=== PATIENT | female | born 1960 | race Caucasian/White ===

== ENCOUNTER 2025-03-20 12:43 | Outpatient (AMB) | payer MEDICARE, MEDICAID, SELFPAY ==
--- NOTE | 2025-03-20 13:03 | HO.SPINEOV ---
Intake Visit Reasons: Spinal Stenosis Intake Note: Mrs. Sandra is here today c/o back pain. MRI disc brought by pt. Supervisor Fishing Required: No Assessment & Plan Assessment & Plan (1) Degenerative disc disease (DDD) of lumbar region with discogenic back pain and leg pain: Code(s): M51.362 - Other intervertebral disc degeneration, lumbar region with discogenic back pain and lower extremity pain Category: Medical Plan Denisa is a pleasant, complicated 65 year old female who is self referred to our practice. She comes in today for evaluation of low back pain and shooting pain into her right leg. She reports this has been ongoing since before her 1st lumbar spine surgery in 2020. She states that in 2020 she had an L3-[address] completed [address] Dr[address] Urrutia at [facility]. She reports that her pain was relieved for about 5 months after surgery, and subsequently returned. After re-evaluation by her surgeon, she was offered an L4-5 lumbar fusion. She reports that this provided no relief of her back pain or leg pain. Since her L4-5 fusion in 2022 she has essentially existed in constant pain. When discussing her pain she states that her low back pain is by far the worst. In regards to her leg pain she states that it starts in her right posterior buttocks travels to the lateral aspect of her right hip all the way down the lateral aspect of her leg to the top of her foot. She reports some burning associated with the pain, but denies numbness/tingling. She states that she has attempted cortisone injections, physical therapy, and over the counter medications (Advil, alleve, tylenol, pain patches) with no meaningful relief of her pain. She is currently on Lyrica to help mitigate some of her overnight pain, as she reports awakening throughout the night with shooting pains which she describes as lightning down her right leg. She reports that sitting is the worst position for her, and produces the most pain in her low back. Standing and walking help to alleviate some of the pain. She PMH: History of appendectomy, carpal tunnel release, tubal ligation, left-sided total knee replacement, two unspecified shoulder surgeries, L3-5 lumbar decompression in 2020, at L4-5 lumbar fusion in 2022, hiatal hernia repair. Lichen planus, Sjogren syndrome, peripheral neuropathy, fibromyalgia, chronic migraines, anxiety, restless legs syndrome. Social hx: The patient does not smoke, reports no substance use. Medications: Aimovig auto-injector, venlafaxine, Lyrica, trazodone, cyclobenzaprine, vitamin-E. Allergies: Aspirin, penicillin, Topamax, Cymbalta, amitriptyline, gabapentin. Physical exam: The patient has 5/5 strength in her upper and lower extremities, however elicits quite a deal with the pain to left-sided iliopsoas testing. She reports that this may be related to her left total knee replacement. The patient ambulates well with no assistive devices. Her gait is non spastic and nonantalgic. She has no significant sensational deficits on examination. Her reflexes are absent in the bilateral patella, but 2+ normal elsewhere. (-) bilateral straight leg raise, (-) Paula's, (-) clonus. Imaging review: MRI of the lumbar spine completed at [facility] shows diffuse spondylosis and degeneration of the lumbar spine. There is severe loss of disc height at L1-2, and varying degrees of degenerative disc disease L2-S1. At L1-2 there is severe left-sided foraminal stenosis, at L3-4 there is a moderately sized posterior disc bulge with a what appears to be bilateral foraminal stenosis, however this level is slightly effaced by artifact from the fusion construct seen at L4-5. On localizer view there appears to be a right lateral listhesis of L3, and a slight dextroscoliosis with the apex at L2-3. Impression: Denisa is a pleasant 65-year-old female who comes in today as a self-referral for evaluation of low back pain and shooting pain into her right lower extremity. She reports this has been ongoing and persistent despite 2 previous lumbar surgeries attempting to address this issue. She did have one period after her 1st lumbar decompression where she was pain-free for about 5 months, but aside from this she has essentially been in constant pain for years. She lives in the [facility], and states that she heard about our office via word of mouth and decide to make the drive out here to be evaluated. It sounds like she is suffering from fairly severe low back pain as a result of the diffuse degeneration seen in her lumbar spine, in his also suffering from what sounds like a right-sided L5 radiculopathy. I would like to send the patient for a CT scan of her lumbar spine to better evaluate the large laminectomies mentioned in the MRI report, and also to better evaluate for osteophyte growth and bone quality given the degeneration seen on MRI imaging. After this, I believe the patient would be best served following up with Dr. Samuel, as this is a 2nd opinion case after the patient saw her previous surgeon once more after her 2nd surgery and was told that there is nothing else to be done in her spine. Thank you for allowing us to care for your patient. The total time spent with this visit with this patient was 65 minutes reviewing history, physical exam, MRI imaging review, and implementation of treatment plan or further diagnostic testing Kobi Samuel MD,PhD [facility] Orders: Orders XR lumbar spine 4V min Today M54.50 - Low back pain, unspecified CT lumbar spine wo IV con Today M51.362 - Other intervertebral disc degeneration, lumbar region with discogenic back pain and lower extremity pain Coding Level of Care Code New Pt Level 5 (40498) Diagnoses Degenerative disc disease (DDD) of lumbar region with discogenic back pain and leg pain M51.362
== END 2025-03-20 13:55 | disposition home or self-care (01) ==
LOC: HO.HNS 12:44
PROVIDERS: Visit Provider Physician Assistant
DX: M51.362 Other intervertebral disc degeneration, lumbar region with discogenic back pain and lower extremity pain (principal)
CPT/HCPCS: 99205

== ENCOUNTER 2025-03-20 12:43 | Outpatient (REF) | payer MEDICARE, MEDICAID, SELFPAY ==
--- NOTE | ~2025-03-20 | XR_ITS ---
EXAMINATION: XR LUMBOSACRAL SPINE CLINICAL INFORMATION: M54.50 - Low back pain, unspecified COMPARISON: None available. TECHNIQUE: AP and lateral views. Lateral views during flexion and extension position. FINDINGS: Unilateral right-sided transpedicular screws at L4-5. S-shaped curvature of the thoracolumbar spine. Multilevel marginal osteophyte formation and endplate sclerosis and decreased intervertebral disc height throughout the axial skeleton. There is a grade 1 retrolisthesis in neutral position which persists in flexion and extension position at L3-4. XR/XR lumbar spine 4V min IMPRESSION: Multilevel thoracolumbar spondylosis and dextroconvex rotoscoliosis. Grade 1 retrolisthesis L3-4 without gross instability. Intact hardware. Electronically signed by: Tomasz Dela Cruz MD 03/20/2025 03:22 PM EDT
== END 2025-03-20 12:44 | disposition home or self-care (01) ==
LOC: HO.HOSX 12:43
PROVIDERS: Visit Provider Physician Assistant
DX: M51.362 Other intervertebral disc degeneration, lumbar region with discogenic back pain and lower extremity pain (principal); M54.50 Low back pain, unspecified
CPT/HCPCS: 72110; 99202

== ENCOUNTER → 2025-03-20 13:42 | Outpatient (BNV) | payer MEDICARE, MEDICAID, SELFPAY | PROVIDERS: Visit Provider Radiology Diagnostic Radiology | DX: M47.896 Other spondylosis, lumbar region (principal) | CPT/HCPCS: 72110 ==

== ENCOUNTER 2025-04-15 08:51 | Outpatient (REF) | payer MEDICARE, MEDICAID, SELFPAY ==
--- NOTE | ~2025-04-15 | CT_ITS ---
CLINICAL HISTORY: M51.362 - Other intervertebral disc degeneration, lumbar region with dis... CT lumbar spine without contrast Comparison: DX/SR - XR LUMBAR SPINE 4 OR MORE VIEWS - 03/20/25 13:42 EDT Findings: There has been a previous transpedicular posterior fusion at L4-5 with unilateral right-sided transpedicular screws. Posterior decompression at L4 and L5. Minimal retrolisthesis of L3 on L4, unchanged from prior. Multilevel degenerative change of the lumbar spine is present. At L1-2 there is severe disc height loss with sclerotic Modic endplate changes and large posterior osteophytes. There is resultant mild canal stenosis with an AP diameter of 8 mm. Severe left and moderately severe right foraminal narrowing present. At L2-3 there is moderate disc height loss. Moderately severe facet arthrosis is present. There is severe left neural foraminal narrowing and no right-sided foraminal narrowing. No central canal narrowing. At L3-4 there is severe disc height loss and a large posterior disc osteophyte complex which results in mild canal stenosis with an AP diameter of 9 mm. There is severe bilateral foraminal narrowing. At L4-5 there is severe disc height loss. Facet arthrosis is present. There been posterior decompressions at L4 and L5. There is no central canal stenosis. There is moderately severe bilateral foraminal stenosis. At L5-S1 there is severe disc height loss. Posterior disc osteophyte complex present without canal stenosis. Moderate bilateral foraminal narrowing present. Multiple diverticula noted in the sigmoid colon. IMPRESSION: Multilevel degenerative changes of the lumbar spine with resultant multilevel foraminal narrowing. There is mild canal stenosis at L1-2 and L3-4. This document has been electronically signed by: Jenaro Chang MD on 04/18/2025 01:34:51
== END 2025-04-15 08:52 | disposition home or self-care (01) ==
LOC: HO.CT 08:51
PROVIDERS: Visit Provider Physician Assistant
DX: M51.362 Other intervertebral disc degeneration, lumbar region with discogenic back pain and lower extremity pain (principal)
CPT/HCPCS: 72131

== ENCOUNTER → 2025-04-15 08:53 | Outpatient (BNV) | payer MEDICARE, MEDICAID, SELFPAY | PROVIDERS: Visit Provider Radiology Diagnostic Radiology | DX: M51.362 Other intervertebral disc degeneration, lumbar region with discogenic back pain and lower extremity pain (principal) | CPT/HCPCS: 72131 ==

== ENCOUNTER 2025-04-26 13:45 | Outpatient (AMB) | payer MEDICARE, MEDICAID, SELFPAY ==
--- NOTE | 2025-04-26 13:50 | HO.SPINEOV ---
Intake Visit Reasons: CT scan f/u 2nd opinion Intake Note: Mrs. Palacios is here today for a second opinion and F/u of her CT scan. Media Marketing Director Required: No Allergies aspirin Allergy (Severe, Verified 04/26/25 13:55) Anaphylaxis Penicillins Allergy (Severe, Verified 04/26/25 13:55) Anaphylaxis Assessment & Plan Assessment & Plan (1) Neural foraminal stenosis of lumbar spine: Code(s): M48.061 - Spinal stenosis, lumbar region without neurogenic claudication Category: Medical (2) Lumbosacral radiculopathy at L5: Code(s): M54.17 - Radiculopathy, lumbosacral region Category: Medical Plan Dear colleague, On 04/26/2025, I saw for review of the CT of the lumbar spine Denisa Palacios. As you know she is in an L3-L5 lumbar decompression and an L4-5 instrumented fusion for right sciatica in an L5 dermatome. The surgeries were unsuccessful. She was seen for 2nd opinion in our practice. My PA ordered a CT of the lumbar spine and she comes back to review the studies. The CT scan shows a large osteophyte compressing the right L5 nerve root. He osteophyte is sitting intraforaminal only and partially extra foraminally. I showed the images to the patient and her and explained to her that an L5-S1 facetectomy is required to get the maximum decompression of the L5 nerve root. We would also revise the instrumentation and extend to S1. She will stay 1 night in hospital. I described the surgery and expected outcome. She wants to proceed. She will be tentatively scheduled for 06/07/2025. I spent 30 minutes in his consult to review imaging and discussing plan of care. Petros Samuel MD, PhD Spine Fellowship Trained Neurosurgeon Director, [facility] Coding Level of Care Code Est Pt Level 4 (05709) Diagnoses Neural foraminal stenosis of lumbar spine M48.061 Lumbosacral radiculopathy at L5 M54.17
== END 2025-04-26 14:33 | disposition home or self-care (01) ==
LOC: HO.HNS 13:46
PROVIDERS: Visit Provider Neurological Surgery
DX: M48.061 Spinal stenosis, lumbar region without neurogenic claudication (principal); M54.17 Radiculopathy, lumbosacral region
CPT/HCPCS: 99214

== ENCOUNTER → 2025-04-26 13:45 | Outpatient (BNVA) | payer MEDICARE, MEDICAID, SELFPAY | PROVIDERS: Visit Provider Neurological Surgery | DX: M48.061 Spinal stenosis, lumbar region without neurogenic claudication (principal); M54.17 Radiculopathy, lumbosacral region | CPT/HCPCS: 99212 ==

== ENCOUNTER → 2025-05-31 11:15 | Outpatient (BNV) | payer MEDICARE, MEDICAID, SELFPAY | PROVIDERS: Admitting Provider Neurological Surgery; Visit Provider Internal Medicine Cardiovascular Disease | DX: I49.3 Ventricular premature depolarization (principal) | CPT/HCPCS: 93010 ==

== ENCOUNTER 2025-06-07 05:50 | Day surgery (SDC) | payer MEDICARE, MEDICAID, SELFPAY ==
--- NOTE | 2025-05-31 | ECG_ITS ---
Test Reason : preop Blood Pressure : */* mmHG Vent. Rate : 70 BPM Atrial Rate : 70 BPM P-R Int : 170 ms QRS Dur : 86 ms QT Int : 434 ms P-R-T Axes : 16 -1 4 degrees QTcB Int : 468 ms Sinus rhythm with occasional Premature ventricular complexes Minimal voltage criteria for LVH, may be normal variant ( R in aVL ) ST & T wave abnormality, consider anterior ischemia Abnormal ECG No previous ECGs available Referred By: Maria Dolores Coto Electronically Signed By: JAZ CAPELLAN MD
[2025-05-31 10:37] VITALS: BP 138/75; PULSE 74; RESP 20; O2SAT 94; BMI 29.5
--- NOTE | 2025-05-31 10:52 | HO.ANESPROP2 ---
Documented by User: Maria Dolores Coto NP 05/31/25 12:47 HPI - Anesthesia Eval Consult details Narrative: 65yo F for Right L5-S1 Facetectomy and Revision of posterior instrumentation, 06/07/25 No recent illness Palpitations with mild chest pain ~ 3 x weekly. R/t stress/anxiety/fibromyalgia. No SOB. Activity limited by pain. Able to mow the lawn, grocery shop. PONV: good effect with scop, zofran, propofol Sjogrens, fibromyalgia: follows Rheum. Discussed side effects of scop patch can make sjogren's symptoms worse. Pt verbalized understanding and requests scop patch Lichen planus of gums (red, irritated, bleed easily) GERD: resolved with hiatal hernia repair PMFSH Active Problems Active Problems: All Active Problems Lumbosacral radiculopathy at L5 (Acute) Neural foraminal stenosis of lumbar spine (Acute) Degenerative disc disease (DDD) of lumbar region with discogenic back pain and leg pain (Acute) Lumbago (Acute) Past Medical History Medical History Postoperative nausea and vomiting Lichen planus Back pain History of MRSA infection [place] History of headache COVID-19 Palpitations Chest pain IT band syndrome Panic attacks Depression Vertigo Constipation Myositis Myalgia Degenerative disc disease, cervical Occipital neuralgia Fibromyalgia GERD (gastroesophageal reflux disease) Hyperlipidemia Anxiety Obesity Allergic rhinitis RLS (restless legs syndrome) Sjogren's syndrome Periesophageal hiatal hernia Migraine Family History Family history of problems with anesthesia: Yes (Siblings with PONV) Surgical History Surgical History Hx of tooth extraction History of repair of hiatal hernia Hx of tubal ligation Hx of section (~1988) S/P nerve repair (~2012) History of lumbar fusion (~2022) History of lumbar laminectomy (~2021) Hx of total knee replacement (~2019) History of carpal tunnel surgery of left wrist History of appendectomy Hx of shoulder surgery History of esophagogastroduodenoscopy (EGD) H/O colonoscopy History of Problems with Anesthesia: Yes (PONV ) Social History Social History Housing Other:: mobil home Are you a primary day care assistant to a significant other at home: No Do you presently have visiting nurse or other home services: No Patient Tobacco Use Status: Never used Tobacco Use of substances other than those prescribed or required for medical reasons: Yes Substance Use Type Other:: Gummies Substance Use Frequency: Daily Have you been hit, kicked, punched, or otherwise hurt by someone within the past year? If so, by whom?: No Are you DNR?: No Advance Directives: No Advance Directives Information Provided: Yes Advance Directives on File: No Patient : No : No Meds Allergies Allergy/AdvReac Type Severity Reaction Status Date / Time aspirin Allergy Severe Nausea Verified 06/07/25 06:22 Penicillins Allergy Severe Rash Verified 06/07/25 06:22 amitriptyline Allergy Nausea Verified 06/07/25 06:22 duloxetine Allergy Nausea Verified 06/07/25 06:22 gabapentin Allergy Nausea Verified 06/07/25 06:22 topiramate Allergy Nausea Verified 06/07/25 06:22 Home Medications ?Medication ?Instructions ?Recorded ?Confirmed ?Last Taken ?Type acetaminophen 500 mg tablet 1,000 mg PO BID PRN Pain 05/31/25 06/07/25 Unknown History biotin 10,000 mcg capsule 10,000 mcg PO DAILY 05/31/25 06/07/25 Unknown History cetirizine 10 mg tablet 10 mg PO DAILY 05/31/25 06/07/25 Unknown History cholecalciferol (vitamin D3) 50 50 mcg PO DAILY 05/31/25 06/07/25 Unknown History mcg (2,000 unit) tablet clindamycin HCl 150 mg capsule 600 mg PO ONCE 05/31/25 06/07/25 Unknown History erenumab-aooe 140 mg/mL 140 mg subcut QMONTH 05/31/25 06/07/25 Unknown History subcutaneous auto-injector fluticasone propionate 50 1 spray intranasal Q12H 05/31/25 06/07/25 Unknown History mcg/actuation nasal spray,suspension lidocaine HCl 2 % mucosal solution 15 ml PO DAILY 05/31/25 06/07/25 Unknown History multivitamin 1 tab PO DAILY 05/31/25 06/07/25 Unknown History naproxen sodium 220 mg capsule 440 mg PO DAILY PRN Pain 10/06/07/25 05/31/25 History (Aleve) pregabalin 25 mg capsule 25 mg PO BEDTIME 05/31/25 06/07/25 Unknown History pregabalin 75 mg capsule 75 mg PO BEDTIME 05/31/25 06/07/25 Unknown History sumatriptan succinate 50 mg tablet 50 mg PO DAILY PRN Headache 05/31/25 06/07/25 Unknown History triamcinolone acetonide 0.1 % 1 appl topical BID-TID PRN Skin 05/31/25 06/07/25 Unknown History topical cream Irritation venlafaxine 150 mg 150 mg PO BID 05/31/25 06/07/25 Unknown History capsule,extended release 24 hr Exam Height,Weight and Vital Signs: Height 5 ft 1 in Weight 70.76 kg Last Vital Signs Pulse 74 05/31/25 10:37 Resp 20 05/31/25 10:37 BP 138/75 05/31/25 10:37 Pulse Ox 94 05/31/25 10:37 O2 Del Method Room Air 05/31/25 10:37 Pertinent Lab Results Pertinent Lab Results: CBC and BMP 03/2025 from outside facility WNL Narrative Narrative: EKG 05/2025 Vent. Rate : 70 BPM Atrial Rate : 70 BPM P-R Int : 170 ms QRS Dur : 86 ms QT Int : 434 ms P-R-T Axes : 16 -1 4 degrees QTcB Int : 468 ms Sinus rhythm with occasional Premature ventricular complexes Minimal voltage criteria for LVH, may be normal variant ( R in aVL ) ST & T wave abnormality, consider anterior ischemia Abnormal ECG No previous ECGs available - no significant change by manual comparison from 2022 outside EKG Airway Mallampati Class: II TM Dist: >3cm Neck ROM: Full Partial: Upper Loose/Missing/Broken Teeth: Yes (Left upper molar broken, capped front teeth upper and lower) Heart: RRR Lungs: CTAB Assessment and Plan Assessment Anesthesia Assessment: Anesthesia Plan Discussed and PAT Visit Final Anesthetic Review Family History of Problems with Anesthesia: Yes (Siblings with PONV) History of Problems with Anesthesia: Yes (PONV ) Documented by User: Zarina Victoria MD 06/07/25 08:29 [facility] Past Medical History Medical History Postoperative nausea and vomiting Lichen planus Back pain History of MRSA infection [place] History of headache COVID-19 Palpitations Chest pain IT band syndrome Panic attacks Depression Vertigo Constipation Myositis Myalgia Degenerative disc disease, cervical Occipital neuralgia Fibromyalgia GERD (gastroesophageal reflux disease) Hyperlipidemia Anxiety Obesity Allergic rhinitis RLS (restless legs syndrome) Sjogren's syndrome Periesophageal hiatal hernia Migraine Surgical History Surgical History Hx of tooth extraction History of repair of hiatal hernia Hx of tubal ligation Hx of section (~1988) S/P nerve repair (~2012) History of lumbar fusion (~2022) History of lumbar laminectomy (~2021) Hx of total knee replacement (~2019) History of carpal tunnel surgery of left wrist History of appendectomy Hx of shoulder surgery History of esophagogastroduodenoscopy (EGD) H/O colonoscopy Social History Social History Housing Other:: mobil home Are you a primary day care assistant to a significant other at home: No Do you presently have visiting nurse or other home services: No Patient Tobacco Use Status: Never used Tobacco Use of substances other than those prescribed or required for medical reasons: Yes Substance Use Type Other:: Gummies Substance Use Frequency: Daily Have you been hit, kicked, punched, or otherwise hurt by someone within the past year? If so, by whom?: No Are you DNR?: No Advance Directives: No Advance Directives Information Provided: Yes Advance Directives on File: No Patient : No : No Meds Allergies Allergy/AdvReac Type Severity Reaction Status Date / Time aspirin Allergy Severe Nausea Verified 06/07/25 06:22 Penicillins Allergy Severe Rash Verified 06/07/25 06:22 amitriptyline Allergy Nausea Verified 06/07/25 06:22 duloxetine Allergy Nausea Verified 06/07/25 06:22 gabapentin Allergy Nausea Verified 06/07/25 06:22 topiramate Allergy Nausea Verified 06/07/25 06:22 Home Medications ?Medication ?Instructions ?Recorded ?Confirmed ?Last Taken ?Type acetaminophen 500 mg tablet 1,000 mg PO BID PRN Pain 05/31/25 06/07/25 Unknown History biotin 10,000 mcg capsule 10,000 mcg PO DAILY 05/31/25 06/07/25 Unknown History cetirizine 10 mg tablet 10 mg PO DAILY 05/31/25 06/07/25 Unknown History cholecalciferol (vitamin D3) 50 50 mcg PO DAILY 05/31/25 06/07/25 Unknown History mcg (2,000 unit) tablet clindamycin HCl 150 mg capsule 600 mg PO ONCE 05/31/25 06/07/25 Unknown History erenumab-aooe 140 mg/mL 140 mg subcut QMONTH 05/31/25 06/07/25 Unknown History subcutaneous auto-injector fluticasone propionate 50 1 spray intranasal Q12H 05/31/25 06/07/25 Unknown History mcg/actuation nasal spray,suspension lidocaine HCl 2 % mucosal solution 15 ml PO DAILY 05/31/25 06/07/25 Unknown History multivitamin 1 tab PO DAILY 05/31/25 06/07/25 Unknown History naproxen sodium 220 mg capsule 440 mg PO DAILY PRN Pain 05/31/25 06/07/25 05/31/25 History (Aleve) pregabalin 25 mg capsule 25 mg PO BEDTIME 05/31/25 06/07/25 Unknown History pregabalin 75 mg capsule 75 mg PO BEDTIME 05/31/25 06/07/25 Unknown History sumatriptan succinate 50 mg tablet 50 mg PO DAILY PRN Headache 05/31/25 06/07/25 Unknown History triamcinolone acetonide 0.1 % 1 appl topical BID-TID PRN Skin 05/31/25 06/07/25 Unknown History topical cream Irritation venlafaxine 150 mg 150 mg PO BID 05/31/25 06/07/25 Unknown History capsule,extended release 24 hr Assessment and Plan Assessment Anesthesia Assessment: Chart Reviewed Final Anesthetic Review NPO: Yes ASA Class: III Final Preanesthetic Review: No Changes in Pt Med Stat, Meds/Allgs Chart Reviewed, Consent Obtained/Reviewed and Anes Risks/Benef Reviewed Patient Risk: Intermediate Procedure Risk: Intermediate Anesthetic Plan Anesthetic Plan: GA and Agree w/ Assess. and Plan Disposition: Standard PACU
[2025-06-07] VITALS (24 sets, daily range): BP systolic 104–127; BP diastolic 60–87; PULSE 80–91; RESP 13–18; TEMP 36.6–36.8; O2SAT 87–99; BMI 29.7
--- NOTE | ~2025-06-07 | FL_ITS ---
EXAMINATION: FL GUIDANCE ONLY HISTORY: right l5-s1 facetectomy COMPARISON: Correlation is made with plain films of the lumbar spine dated 03/20/2025. TECHNIQUE: Fluoroscopy time: 49 seconds. Cumulative Dose: 28.12 mGy. DAP: 1654.5 mGycm2 Images: 2. FINDINGS: Fluoroscopic spot films of the lumbar spine demonstrate partial removal of the previously seen fusion hardware at the L4-5 level with a portion of a screw seen in the L5 vertebral body. A probe is noted directed toward the L5-S1 intervertebral disc space. FL/FL guidance in OR IMPRESSION: Fluoroscopy during procedure. Please see procedure report for additional information. Electronically signed by: Manish Nagel MD 06/07/2025 09:32 AM EDT
[2025-06-07] MEDS: Lactated Ringers 1,000 ML 100 ML IVCONT (06:34)
--- NOTE | 2025-06-07 06:56 | MHC.SHP ---
Pre-Procedural Eval Section A - 24 Hr Update-Section A only Date of Service: 06/07/25 Section B - Complete if H&P > 30 days Chief Complaint: Radiculopathy, lumbosacral region,spinal stenosis Allergies: Allergies Allergy/AdvReac Type Severity Reaction Status Date / Time aspirin Allergy Severe Nausea Verified 06/07/25 06:22 Penicillins Allergy Severe Rash Verified 06/07/25 06:22 amitriptyline Allergy Nausea Verified 06/07/25 06:22 duloxetine Allergy Nausea Verified 06/07/25 06:22 gabapentin Allergy Nausea Verified 06/07/25 06:22 topiramate Allergy Nausea Verified 06/07/25 06:22 Review of Systems Sugical H&P ROS: Negative: Constitution, Cardiovascular, Respiratory, Neurological, Psychiatric, Hem-Onc, Allergic/Immunologic, Gastrointestinal, Genitourinary, Musculoskeletal, Integumentary, Endocrine and Eyes/Ears/Nose/Throat Exam Surgical H&P Exam: Not Evaluated: HEENT, Not Evaluated: Heart, Not Evaluated: Lungs, Not Evaluated: Extremities, Not Evaluated: Abdomen, Not Evaluated: Skin and Not Evaluated: Neurological Exam Comment: The patient is awake, alert, in no acute distress. Proposed surgical incision site is clean, dry, with no signs of recent trauma. Plan Diagnosis/Plan: Unchanged I have reviewed the history and physical and performed a pertinent physical examination on my patient. No changes have occurred unless specified. Plan remains the same, L5-S1 facetectomy and revision / extension of posterior instrumentation to S1 Time Spent With Patient Time: Total time managing care of this patient today ____ minutes.
--- NOTE | 2025-06-07 09:15 | W.PM.OPN ---
Operative Note Operative Note Date of Service: 06/07/25 Narrative: Preop diagnosis: Intraforaminal/extraforaminal L5 nerve compression, right side. Status post L4 and L5 lumbar decompression and unilateral instrumentation in another institution Postop diagnosis: same Procedure: Removal posterior L4-5 instrumentation; L5 nerve decompression with partial facetectomy, extraforaminal approach with microscope Description of procedure: This patient is suffering from a right L5 lumbar radiculopathy despite previous L4-5 lumbar decompression and unilateral instrumentation. She came to see me for 2nd opinion and I would obtain the CT scan that showed a large bone spur intraforaminal/extraforaminal compressing the L5 nerve root. The initial plan was to remove the previous L4-5 instrumentation and do an L5-S1 facetectomy. This plan changed intraoperatively which will be dictated below. The procedure and complications were explained. The patient was consented. The patient was brought to the operating room and endotracheally intubated. The patient was turned in the prone position on Evan frame. Prepping and draping was done followed by time-out. An incision was marked with x-rays over the previous placed L4-5 instrumentation. Paramedian incision was made. The muscle fascia was opened and the instrumentation was exposed. The locking caps were removed. The hardware was non functioning and lose. The julien was removed and the L4 screw was taken out. The L5 screw was broken at the junction of the vertebral body and pedicle. So this screw was partially removed. Removal of the distal part of the screw would have created a larger pedicle defect and would not have allowed me to place a new screw. I changed strategies and decided to do only a partial L5-S1 facetectomy from a lateral approach. The microscope was introduced. I drilled away the lateral part and resected with a 2. Kerrison. I identified the L5 nerve root and followed it laterally. I could palpate a bone spur below the L5 nerve root. Unfortunately, I could not mobilize the L5 nerve root as this would create a distraction injury to the nerve. However I decompressed the nerve cranially and distally by removing more bone flush to the pedicle martinez of S1 and L5. Overall, the nerve root had significant space after this. I did not create any instability and therefore no additional instrumentation was required. Hemostasis was done with Surgiflo. Physician accounts payable assistant took over the procedure and performed hemostasis and closure of the incision in 2 layers. Steri-Strips were used to approximate the incision. An Oppsite with tegaderm was used to cover the incision. All sponge and needle counts were correct. The patient was extubated and transported in stable condition to recovery room. Surgeon: Petros Samuel MD Assist: SAMUEL Ruiz Anesthesia: general Estimated blood loss: minimal Specimen: none Deposition: Discharge home
--- NOTE | 2025-06-07 09:25 | P.DS_ITS ---
DS: Providers Provider Date of Service: 06/07/25 Date of discharge: 06/07/25 Primary care physician: Unknown Physician DS: Summary Time Attestation Discharge Coordination Time (in mins): 15 Quality: Safe Use of Opioids Does Pt have an Active Cancer Diagnosis on the Problem List?: No Quality: Stroke Does the patient have a stroke diagnosis?: No Physical Exam Vital Signs: Vital Signs: Last Vital Signs Temp 98.2 F 06/07/25 06:27 Pulse 82 06/07/25 06:27 Resp 17 06/07/25 06:27 BP 127/87 06/07/25 06:27 Pulse Ox 96 06/07/25 06:27 O2 Del Method Room Air 06/07/25 06:27 BMI result Body Mass Index 29.7 Discharge Plan Discharge Patient Disposition: Home, Self-Care Referrals: Physician,Unknown J [Primary Care Provider, Medical] - 1 Week Discharge Medications: New oxycodone 5 mg tablet 5 mg PO Q6H PRN (Reason: pain) Qty: 30 0RF Rx Instructions: Partial Fill upon patient request. Continued multivitamin Tablet 1 tab PO DAILY cetirizine 10 mg tablet 10 mg PO DAILY venlafaxine 150 mg capsule,extended release 24hr 150 mg PO BID sumatriptan succinate 50 mg tablet 50 mg PO DAILY PRN (Reason: Headache) acetaminophen 500 mg Tablet 1,000 mg PO BID PRN (Reason: Pain) triamcinolone acetonide 0.1 % cream 1 appl topical BID-TID PRN (Reason: Skin Irritation) fluticasone propionate 50 mcg/actuation spray,suspension 1 spray intranasal Q12H pregabalin 25 mg capsule 25 mg PO BEDTIME Patient Comments: total dose of 100 mg pregabalin 75 mg capsule 75 mg PO BEDTIME cholecalciferol (vitamin D3) 50 mcg (2,000 unit) Tablet 50 mcg PO DAILY clindamycin HCl 150 mg capsule 600 mg PO ONCE biotin 10,000 mcg Capsule 10,000 mcg PO DAILY lidocaine HCl 2 % solution 15 ml PO DAILY Held naproxen sodium [Aleve] 220 mg Capsule 440 mg PO DAILY PRN (Reason: Pain) Hold Instructions: Resume on 06/08/25. erenumab-aooe 140 mg/mL Auto-Injector 140 mg SUBCUT QMONTH Hold Instructions: Resume on 06/14/25. Discuss restarting this medication after surgery with your prescriber. It is a disease modifying drug that can suppress the immune system and interfere with healing from surgery. Discharge Orders: Discharge Order (Routine); Ordered 06/07/25 Ordered By: Kobi Noriega Diet: Advance to usual diet Activity on Discharge: As tolerated Activity Restrictions/Additional Instructions: After your spinal surgery we ask you to observe the following restrictions/guidelines: Activity: It is normal to feel some discomfort as you increase your activity, but that will improve with time. We ask you avoid heavy lifting or acitivities that cause pain. As a general rule, 8lbs is a safe limit for lifting right after surgery. Walk as much as you feel comfortable but not to exhaustion. You will feel extra tired the first few days after surgery. Stay well hydrated. It is OK to walk up and down stairs You may return to driving when you are off narcotics (such as vicodin, oxycodone, dilaudid, etc), and you are back to normal functional capacity. If you have any concerns please check with office before driving. Return to work is specific to each patient and each surgery, so please speak with your doctor/PA at first follow up. Please bring paperwork such as FMLA at that time if you need it filled out. Medications: Please discuss restarting your Erenumab prescription with the prescriber for this medication. We recommend you take 500mg Tylenol every 4 hours for the first week after surgery, if you do not have any liver issues and can tolerate this medication. Do not exceed 4,000mg daily. We also recommend you take Ibuprofen 600mg every 8 hours for the first week after surgery starting on post op day 1, ?if you do not have any kidney or sugar control issues and can tolerate this medication. Do not exceed 2,000mg daily. We will give you a short supply of narcotics after surgery (usually one weeks worth). If you need more please call the office but do not use more than prescribed. You will need to give our office 48 hours notice if you need narco tics refilled and we do not fill narcotics on weekends or evenings. If you are on a narcotic, it is a good idea to take a stool softener such as colace or senna to avoid constipation If you take blood thinner such as aspirin, Plavix, Coumadin, Effient, Eliquis etc for conditions such as Afib, DVT, Pulmonary embolus, coronary disease, stents etc please speak with your surgeon about specific details as to when you can resume these medications. You can resume NSAIDs on post op day 1 (eg: Motrin, Naproxen, etc). Follow up: Please call the office, , after surgery to arrange a 3 week follow up for wound check. Wound Care: You may remove your dressing on the first day after surgery. ?You may ?leave open to air. Please do not remove the steri strips underneath. they will fall off on their own in one week. IT IS NORMAL FOR THE WOUND TO OOZE OR BE BLOODY FOR A FEW DAYS AFTER SURGERY. ?IF THIS HAPPENS JUST PLACE NEW DRESSING OVER IT TO AVOID STAINING CLOTHES. You may shower on post op day # 1 We ask that you do not let the water soak the wound. If it does get wet, just towel dry lightly. Please do not scrub your incision or place any type of chemical/ointment on the wound. No tub baths, pools or jacuzzis for one month. If you have any leaking or redness from your wound, or fevers, please call the office. Print Language: Romanian
== END 2025-06-07 14:07 | disposition home or self-care (01) ==
PROVIDERS: Visit Provider Neurological Surgery
PROC: (CPT 22850; principal; 2025-06-07 07:30)
DX: M48.061 Spinal stenosis, lumbar region without neurogenic claudication (principal); M54.17 Radiculopathy, lumbosacral region; M25.78 Osteophyte, vertebrae; M46.06 Spinal enthesopathy, lumbar region; Z98.1 Arthrodesis status; Z79.899 Other long term (current) drug therapy
CPT/HCPCS: 22850; 63047; 93005; J0131; J1100; J1171; J1885; J2003; J2371; J2405; J2704; J3010; J3374

== ENCOUNTER → 2025-06-07 05:50 | Outpatient (BNV) | payer MEDICARE, MEDICAID, SELFPAY | PROVIDERS: Visit Provider Neurological Surgery | DX: M48.061 Spinal stenosis, lumbar region without neurogenic claudication (principal); M54.17 Radiculopathy, lumbosacral region; T84.21 Breakdown (mechanical) of internal fixation device of other bones | CPT/HCPCS: 22850; 63047 ==

== ENCOUNTER 2025-06-28 13:12 | Outpatient (AMB) | payer MEDICARE, MEDICAID, SELFPAY ==
--- NOTE | 2025-06-28 13:18 | A.SPINEOV_ITS ---
Intake Visit Reasons: 1st post op Intake Note: Mrs. Palacios is here today for her 1st post op. Scientific Affairs Manager Required: No Allergies aspirin Allergy (Severe, Verified 06/07/25 06:22) Nausea Penicillins Allergy (Severe, Verified 06/07/25 06:22) Rash amitriptyline Allergy (Verified 06/07/25 06:22) Nausea duloxetine Allergy (Verified 06/07/25 06:22) Nausea gabapentin Allergy (Verified 06/07/25 06:22) Nausea topiramate Allergy (Verified 06/07/25 06:22) Nausea Assessment & Plan Assessment & Plan (1) Lumbar radiculopathy: Code(s): M54.16 - Radiculopathy, lumbar region Category: Medical Plan Procedure: Removal posterior L4-5 instrumentation; L5 nerve decompression with p artial facetectomy Denisa comes in today for her 1st postoperative visit after having the above mentioned procedure completed by Dr. Samuel. Unfortunately, she reports that her right-sided leg pain has largely persisted in intensity since her surgery. I was present for her surgery with Dr. Samuel, and visualized the L5 nerve completely decompressed by the time we had finished surgery. The nerve was very inflamed and irritated by the time we finished, so she may be experiencing continued pain as she heals from surgery. Given this, she had two prior surgeries by a surgeon in the [facility] before coming to our practice, and after each surgery her pain persisted. This is highly suspicious for pain related to nerve damage, which may not improve despite excellent decompression of the L5 nerve by Dr. Samuel. We discussed this at length. No new neurological deficits. The patient ambulates well but does favor the left-hand side when walking. She uses no assistive devices to ambulate. Her posterior incision site is closed and well healing. I would like the patient to follow up with us again in 6 weeks with a set of x- rays to ensure there is no instability at the level in which she had surgery. Hopefully with some time her inflammation and irritation around the nerve will subside and she will begin to obtain symptom relief. Kobi Samuel MD,PhD [facility] Coding Level of Care Code Global (90796) Diagnoses Lumbar radiculopathy M54.16
--- OUTSIDE RECORDS SUMMARY | 2025-06-29 01:06 | XMS_ITS | Continuity of Care Document ---
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 Name Role Phone LOPEZ MATHIS Primary Care Provider Unavailabl e Assessment Encounter Date Assessment Date Assessment LastModified by Organization Details LastModified Time 04/06/2025 04/06/2025 Reason for Encounter Limted/Emergency Encounter Date: 1:00 PM - 04/06/2025 Treating Provider: Asuncion Domínguez Problems Problems reviewed by: Cheyenne Keller Problems reviewed on: 04/06/2025 01:05 pm Hyperlipidemia Chronic pain Migraine without aura Neuropathy Hemorrhoids Esophagitis Diverticulitis of colon Atopic dermatitis Sj gren's syndrome Osteoarthritis Arthritis Shoulder joint pain Cervical spondylosis without myelopathy Lumbar spondylosis Degeneration of cervical intervertebral disc Neck pain Cervical radiculopathy Cervico-occipital neuralgia Lumbosacral radiculitis Backache Exostosis Myositis Muscle pain Pain in limb Vertigo Fatigue Numbness Abnormal weight gain Headache Epistaxis Palpitations Dyspnea Chest pain Upper chest pain Compression injury of nerve Cubital tunnel syndrome Knee pain History of artificial joint left knee total replacement - artificial joint, Manjeet in back, multiple back surgeries PREMED needed 03/25/[address] Allergies Allergies reviewed by: Cheyenne Keller Allergies reviewed on: 04/06/2025 01:05 pm amitriptyline aspirin Cymbalta gabapentin Penicillins Topamax Medications Medications reviewed by: Cheyenne Keller Medications reviewed on: 04/06/2025 01:05 pm cyclobenzaprine 10 mg tablet cyclobenzaprine 10 mg tablet traZODone 50 mg tablet venlafaxine ER 150 mg capsule,extended release 24 hr triamcinolone acetonide 0.1 % topical cream pregabalin 75 mg capsule Lyrica 75 mg capsule Vitamin D3 10 mcg (400 unit) capsule Fiber Therapy (ca polycarbophil) 625 mg tablet biotin 5,000 mcg disintegrating tablet Aimovig Autoinjector 140 mg/mL subcutaneous auto-injector tiZANidine 4 mg tablet SUMAtriptan 50 mg tablet fluticasone propionate 50 mcg/actuation nasal spray,suspension baclofen 5 mg tablet Lidocaine Viscous 2 % mucosal solution clindamycin HCL 300 mg capsule ibuprofen 600 mg tablet PreviDent 5000 Sensitive 1.1 %-5 % dental paste acetaminophen Extra Strength 500 mg tablet pregabalin 25 mg capsule nortriptyline 10 mg capsule Paxlovid 300 mg (150 mg x 2)-100 mg tablets in a dose pack Completed Procedures D0140 - Limited oral evaluation - problem focused D0220 - Intraoral - periapical first radiographic image Teeth: 14 D0270 - Bitewing - single radiographic image Completed Procedures (cont.) D0140 Patient presents for emergency exam and 1 PA radiograph taken. Chief complaint: broken tooth upper left side causing severe pain EXTRAORAL EXAM: WNL - no facial swelling RADIOGRAPHIC FINDINGS: Caries: tooth #14 INTRAORAL EXAM: Area of concern: # 14 Soft tissue : WNL Clinical exam: Caries, fracture, pulp exposed Cold test: Prolonged Percussion: ++ DIAGNOSIS: broken tooth #14 subgingival with fragile tooth structure TREATMENT PRESENTED: -Extraction tooth #14 Patient informed of all pathology noted on radiograph, including caries, presence of infection, attachment loss, and incipient decay. Additional Comments: Explained and discussed conditions, findings, and plan of care. Follow-Up/Next Visit: Next appointment date is 05/12/2025 at 01:00 PM Treating Provider: Asuncion Domínguez Reason For Encounter: [place] [facility] Treating Provider Asuncion Scruggs 1 PA and 1 Bitewings were taken on DOS. CA Addendum: , 8:50 AM I attest that the treatment rendered today was completed. , 2:22 PM. [email or web address] Not available 04/07/2025 09:02:57 Plan of Treatment Reminders Order Date Submit Date Provider Last Modified By Organization Details Last Modified Time Details Appointments None record ed. Lab None record ed. Referral None record ed. Procedures None record ed. Surgeries None record ed. Imaging None record ed. Medication Orders None record ed. Patient TargetsNo targets recorded. Patient InstructionsNo instructions recorded. Reason for Referral None Reported. Problems Name Problem SNOMED Code Status Onset Date Resolution Date Notes Provider Name and Address Organization Details Recorded Time Compress ion injury of nerve 13169159 Rain neck Lopez Mathis MD. [address] [place] [address], [phone], [facility] 6 11:34:31 Numbness [id number] Rain Mathis MD. [address] [place] [address], [address], [facility] 6 11:34:31 Migraine without aura [id number] Rain Mathis MD. [address] [place] [address], [address] [place] [address], [facility] 6 11:34:31 Myositis [id number] Rain Mathis MD. [address] [place] [address], [address], [facility] 6 11:34:31 Atopic dermatit is [id number] Rain Mathis MD. [address] [place] [address], [address], [facility] 6 11:34:31 Lumbosac ral radiculi tis [id number] Rain Mathis MD. [address] [place] [address], [address], [facility] 6 11:34:31 Arthriti s [id number] Rain Mathis MD. [address] [place] [address], [address], [facility] 6 11:34:31 Vertigo [id number] Rain Mathis MD. [address] [place] [address], [address], [facility] 6 11:34:31 Epistaxi s Rain Mathis MD. [address] [place] [address], [address] [place] [address], [facility] 6 11:34:31 Cervical radiculo meaghan [id number] Rain Mathis MD. [address] [place] [address], [address] [place] [address], [facility] 6 11:34:31 Divertic ulitis of colon [id number] Rain Mathis MD. [address] [place] [address], [address] [place] [address], [facility] 6 11:34:31 Fatigue [id number] Rain Mathis MD. [address] [place] [address], [address] [place] [address], [facility] 6 11:34:31 Osteoart hritis 709531892 Active [facility] joint of thumb Lopez Mathis MD. [address] [place] [address], [address] [place] [address], [facility] 6 11:34:31 Dyspnea [id number] Rain Mathis MD. [address] [place] [address], [address] [place] [address], [facility] 6 11:34:31 Palpitat ions 87420334 Rain Mathis MD. [address] [place] [address], [address] [place] [address], [facility] 6 20:06:12 Shoulder joint pain 149346669 Active right shoulder Lopez Mathis MD. [address] [place] [address], [address] [place] [address], [facility] 6 11:34:31 Muscle pain [id number] Rain Mathis MD. [address] [place] [address], [address] [place] [address], [facility] 6 20:06:12 Hemorrho ids [id number] Rain Mathis MD. [address] [place] [address], [address], [facility] 6 11:34:31 Exostosi s [id number] Rain Mathis MD. [address] [place] [address], [address], [facility] 6 11:34:31 Pain in limb 28109335 Active Lopez Mathis MD. [address] [place] [address], [address], [facility] 6 11:34:31 Sj gren's syndrome 96781056 Active Lopez Mathis MD. [address] [place] [address], [address], [facility] 6 11:34:31 Abnormal weight gain 426188615 Active Lopez Mathis MD. [address] [place] [address], [address], [facility] 6 11:34:31 Neck pain [id number] Rain Mathis MD. [address] [place] [address], [address], [facility] 6 11:34:31 Cervico- occipita l neuralgi a [id number] Rain Mathis MD. [address] [place] [address], [address], [facility] 6 11:34:31 Cubital tunnel syndrome Active right Lopez Mathis MD. [address] [place] [address], [address], [facility] 6 11:34:31 Degenera tion of cervical interver tebral disc 20285280 Rain Mathis MD. [address] [place] [address], [address], [facility] 6 11:34:31 Cervical spondylo sis without myelopat hy 353515785 Active and without radiculop archie Mathis MD. [address] [place] [address], [address], [facility] 6 11:34:31 Lumbar spondylo sis [id number] Rain Mathis MD. [address] [place] [address], [address], [facility] [employer] 6 11:34:31 Backache [id number] Rain Mathis MD. [address] [place] [address], [address], [facility] [employer] 6 11:34:31 Headache [id number] Rain Mathis MD. [address] [place] [address], [address], [facility] 6 11:34:31 Neuropat hy 722607264 Active Lopez Mathis MD. [address] [place] [address], [address], [facility] [employer] 6 11:34:31 Knee pain Rain Mathis MD. [address] [place] [address], [address], [facility] [employer] 6 11:34:31 Upper chest pain [id number] Rain Mathis MD. [address] [place] [address], [address], [facility] [employer] 6 20:06:12 Chest pain [id number] Rain Mathis MD. [address] [place] [address], [address], [facility] [employer] 6 11:34:31 Esophagi tis [id number] Rain Mathis MD. [address] [place] [address], [address], [facility] [employer] 6 11:34:31 Hyperlip idemia [id number] Rain Mathis MD. [address] [place] [address], [address], [facility] [employer] 6 20:06:12 Chronic pain 29120748 Active 2017 Lopez Mathis MD. 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 Procedures Surgical History Date Name Laterality Status Provider Name and Address Organization Details Recorded Time Appendectomy completed Lopez Mathis MD. [address] [place] [address], [address] [place] [address], [facility] 04/15/2020 19:55:12 Section completed Lopez hendricks MD. [address] [place] [address], [address] [place] [address], [facility] 04/15/2020 19:55:29 Tubal Ligation completed Lopez lazar MD. [address] [place] [address], [address] [place] [address], [facility] [employer] [facility] 04/15/2020 19:55:54 Other completed ethan tsai [facility] 07/27/2015 15:20:37 Other completed ethan tsai [facility] 07/27/2015 15:21:26 Oral surgery completed ethananna tsai [facility] 07/27/2015 15:21:51 Orthopedic Surgery completed ethan tsai [facility] 07/27/2015 15:22:33 Imaging Results None recorded. Procedure Notes None recorded. Medical Equipment None Reported. Allergies Allergen ID Allergen Name Allergen Category Reaction Reaction Severity Criticality Documentation Date Start Date Code Code System Note Provider Name and Address Organization Details Recorded Time 46634 amitripty line medicatio n Not available Not available Not available 07/16/2015 704 RxNorm artemio chandra [facility] 5 16:14:24 95690 aspirin medicatio n Not available Not available Not available 07/16/2015 [facility] 16:[facility] 67590 Product containin g penicilli n (product) medicatio n rash Not available Not available 07/16/2015 32302 8001 [facility] 16:14:24 13375 Topamax medicatio n Not available Not available Not available 07/16/2015 48418 3 RxNorm artemio chandra [facility], [facility] 5 16:14:24 32653 Cymbalta medicatio n diarrhea Not available Not available 02/06/2016 59338 4 RxNorm Mary Jo Clement-T edgar HANKS [facility], [facility] 6 11:11:01 34631 gabapenti n medicatio n Not available Not available Not available 02/06/2016 15280 RxNorm Mary Jo Clement-T edgar HANKS [facility], [facility] 6 11:11:10 Medications Name Sig Start Date Stop Date Status Note LastModified by Organization Details LastModified Time cyclobenz aprine 10 mg tablet TAKE 1 TABLET BY MOUTH AT BEDTIME NEEDED FOR MUSCLE SPASM active Not Available Not Available No t Available venlafaxi ne ER 37.5 mg capsule,e xtended release 24 hr 08/20 completed Not Available Not Available Not Available venlafaxi ne ER 75 mg capsule,e xtended release 24 hr take one tablet every other day alternat ing with 150mg 08/20 completed Not Available Not Available Not Available doxycycli ne hyclate 100 mg capsule 02/17 completed Not Available Not Available Not Available Acetamino phen Extra Strength 500 mg tablet TAKE 1 TABLET BY MOUTH 4 TIMES DAILY NEEDED FOR PAIN active Not Available Not Available No t Available V-R Vitamin A 8000 unit capsule Take 1 capsule every day by oral route. 08/19 completed Not Available Not Available Not Available clindamyc in HCl 300 mg capsule Take 1 capsule every 6 hours by oral route for 7 days. active Not Available Not Available No t Available Vitamin C 500 mg tablet Take 1 tablet every day by oral route for 100 days. 02/17 completed Not Available Not Available Not Available trazodone 50 mg tablet TAKE 1 TABLET BY MOUTH AT BEDTIME NEEDED FOR INSOMNIA active Not Available Not Available No t Available cetirizin e 10 mg tablet TAKE 1 TABLET BY MOUTH ONCE DAILY active Not Available Not Available No t Available azithromy dee 250 mg tablet TAKE 2 TABLETS BY MOUTH ON DAY 1, AND THEN TAKE 1 TABLET BY MOUTH ONCE A DAY ON DAY 2 THROUGH DAY 5 active Not Available Not Available No t Available ibuprofen 800 mg tablet TAKE 1 TABLET BY MOUTH EVERY 8 HOURS WITH MEALS 02/23 completed Not Available Not Available Not Available tizanidin e 4 mg tablet active Not Available Not Available Not Available fluconazo le 150 mg tablet 08/20 completed Not Available Not Available Not Available sucralfat e 1 gram tablet 08/20 completed Not Available Not Available Not Available prednison e 20 mg tablet TAKE 2 TABLETS BY MOUTH IN THE MORNING FOR 7 DAYS active Not Available Not Available No t Available clindamyc in HCl 150 mg capsule Take 1 capsule every 6 hours by oral route for 7 days. 05/17 completed Not Available Not Available Not Available venlafaxi ne ER 150 mg capsule,e xtended release 24 hr TAKE 1 CAPSULE BY MOUTH TWICE DAILY active Not Available Not Available No t Available sumatript an 50 mg tablet TAKE 1 TABLET BY MOUTH AT ONSET OF HEADACHE . IF NO RELIEF, MAY REPEAT ONE TABLET IN AT LEAST TWO HOURS. (MAX 4 TABS/24 HOURS) active Not Available Not Available No t Available promethaz ine 6.25 mg-codein e 10 mg/5 mL syrup TAKE 10 MLS BY MOUTH EVERY 8 HOURS FOR 10 DAYS 02/23 completed Not Available Not Available Not Available lidocaine HCl 2 % mucosal jelly 08/20 completed Not Available Not Available Not Available Vitamin C 500 mg chewable tablet Take by oral route. 08/21 completed Not Available Not Available Not Available triamcino lone acetonide 0.1 % topical cream APPLY CREAM EXTERNAL LY TO AFFECTED AREA 2 TO 3 TIMES DAILY NEEDED FOR ECZEMA FLARE UP active Not Available Not Available No t Available butalbita l-acetami nophen-ca ffeine 50 mg-325 mg-40 mg tablet Take 1 tablet 3 times a day by oral route as needed. 08/20 completed Not Available Not Available Not Available nortripty line 25 mg capsule TAKE 1 CAPSULE BY MOUTH AT BEDTIME active Not Available Not Available No t Available oxycodone -acetamin ophen 5 mg-325 mg tablet TAKE 1 TABLET BY MOUTH ONCE DAILY AT BEDTIME NEEDED FOR PAIN active Not Available Not Available No t Available famotidin e 20 mg tablet 02/17 completed Not Available Not Available Not Available meclizine 25 mg tablet Take 1 tablet every 8 hours by oral route as needed for 30 days. 08/20 completed Not Available Not Available Not Available baclofen 10 mg tablet TAKE 1 TABLET (10 MG) DAILY 08/20 completed Not Available Not Available Not Available benzonata te 100 mg capsule 1 or 2 tabs TID PRN 02/17 completed Not Available Not Available Not Available doxycycli ne monohydra te 100 mg capsule TAKE 1 CAPSULE BY MOUTH TWICE DAILY FOR 7 DAYS 02/17 completed Not Available Not Available Not Available pantopraz ole 40 mg tablet,de layed release 02/23 completed Not Available Not Available Not Available erythromy dee 5 mg/gram (0.5 %) eye ointment 02/23 completed Not Available Not Available Not Available nortripty line 10 mg capsule TAKE 2 CAPSULES BY MOUTH AT BEDTIME active Not Available Not Available No t Available clotrimaz ole-betam ethasone 1 %-0.05 % topical cream 08/20 completed Not Available Not Available Not Available butalbita l 50 mg-acetam inophen 325 mg-caffei ne 40 mg-codein e 30 mg cap Take 1 capsule 3 times a day by oral route as needed. 08/21 completed Masspat checked Not Available Not Available Not Available fluoromet holone 0.1 % eye drops,mary jo penon 02/17 completed Not Available Not Available Not Available lidocaine HCl 2 % mucosal solution APPLY 15 ML SIX TIMES DAILY DIRECTED FOR 7 DAYS active Not Available Not Available No t Available omeprazol e 20 mg capsule,d elayed release take one tablet daily alternat e wtih ranitidi ne 08/20 completed Not Available Not Available Not Available magnesium 250 mg tablet Take by oral route. 02/28 completed Not Available Not Available Not Available ibuprofen 600 mg tablet active Not Available Not Available Not Available polyethyl katja glycol 3350 17 gram/dose oral powder as directed 02/28 completed Not Available Not Available Not Available methylpre dnisolone 4 mg tablets in a dose pack TAKE BY MOUTH DIRECTED ON INSIDE OF PACKAGE active Not Available Not Available No t Available celecoxib 100 mg capsule 08/20 completed Not Available Not Available Not Available fluticaso ne propionat e 50 mcg/actua tion nasal spray,mary jo pension USE 1 SPRAY(S) IN EACH NOSTRIL EVERY 12 HOURS active Not Available Not Available No t Available doxycycli ne hyclate 100 mg tablet Take 1 tablet twice a day by oral route for 7 days. 02/17 completed Not Available Not Available Not Available oxycodone 5 mg tablet 02/17 completed Not Available Not Available Not Available Vitamin D3 25 mcg (1,000 unit) capsule Take 1 capsule every day by oral route. 04/16 completed Not Available Not Available Not Available pregabali n 25 mg capsule active Not Available Not Available Not Available pregabali n 75 mg capsule TAKE 1 CAPSULE BY MOUTH AT BEDTIME active Not Available Not Available No t Available Lyrica 50 mg capsule Take 1 capsule 3 times a day by oral route as needed. 12/26 completed now taking 50mg every other day alternat ing with 75mg tablet Not Available Not Available Not Available Lyrica 100 mg capsule Take 1 capsule every day by oral route. 08/21 completed Not Available Not Available Not Available Collagen Plus Vitamin C 125 mg-740 mg capsule Take 1 capsule every day by oral route. 02/23 completed Not Available Not Available Not Available vitamin A take one tablet daily 08/21 completed Not Available Not Available Not Available biotin Take 1 (5,000mc g) tablet daily 02/17 completed Not Available Not Available Not Available Super B Complex TAKE 1 DAILY 02/23 completed Not Available Not Available Not Available Vitamin D3 10 mcg (400 unit) capsule Take 3 capsules every day by oral route. 2019 active Not Available Not Available Not Avai lable PreviDent 5000 Sensitive 1.1 %-5 % dental paste Take 1 applicat ion every 12 hours by dental route for 30 days. 2023 active Not Available Not Available Not Avai lable peg 3350-elec trolytes 236 gram-22.7 4 gram-6.74 gram-5.86 gram solution TAKE 240 ML BY MOUTH ONCE active Not Available Not Available No t Available [employer] Analyst (ranitidi ne) 150 mg tablet Take 1 tablet twice a day by oral route for 90 days. 02/28 completed Not Available Not Available Not Available venlafaxi ne ER 225 mg tablet,ex tended release 24 hr 08/20 completed Not Available Not Available Not Available Suprep Bowel Prep Kit 17.5 gram-3.13 gram-1.6 gram oral solution 10/12 completed Not Available Not Available Not Available Xarelto 10 mg tablet 09/06 completed Not Available Not Available Not Available Rectiv 0.4 % (w/w) ointment 02/17 completed Not Available Not Available Not Available lidocaine 5 % topical ointment 02/17 completed Not Available Not Available Not Available Fiber Therapy (ca polycarbo diogenes) 625 mg tablet Take 2 mg every day by oral route. active Not Available Not Available No t Available Estroven 155 mg capsule Take 1 capsule every day by oral route. 08/19 completed Not Available Not Available Not Available [employer] take 1 daily 12/29 completed Not Available Not Available Not Available biotin 1,000 mcg chewable tablet Take 1 tablet every day by oral route. 08/19 completed Not Available Not Available Not Available biotin 5,000 mcg disintegr ating tablet Take 1 tablet every day by oral route. 2019 active Not Available Not Available Not Avai lable baclofen 5 mg tablet TAKE 1 TABLET BY MOUTH AT BEDTIME active Not Available Not Available No t Available Aimovig Autoinjec tor 70 mg/mL subcutane ous auto-inje ctor INJECT 70MG SUBCUTAN EOUSLY EVERY 28 DAYS 02/28 completed Not Available Not Available Not Available Aimovig Autoinjec tor 140 mg/mL subcutane ous auto-inje ctor INJECT 140MG SUBCUTAN EOUSLY ONCE EVERY MONTH active Not Available Not Available No t Available Paxlovid 300 mg (150 mg x 2)-100 mg tablets in a dose pack TAKE 3 TABLETS TOGETHER (TWO 150 MG NIRMATRE LVIR TABLETS AND ONE 100 MG RITONAVI R TABLET) BY MOUTH TWICE DAILY FOR 5 DAYS. active Not Available Not Available No t Available Vitals None Recorded Social History Question Answer Notes LastModified by Organizat ion Details LastModified Time Tobacco Smoking Status Never Smoker Not Available [employer] 05/25/2020 03:13:19 Marital Status [email or web address] Informat[employer] on not available 08/23/2018 What Was The Date Of Your Most Recent Tobacco Screening? 10/12/2018 [id number] Information not available 05/25/2020 How Much Tobacco Do You Smoke? No [id number] Information not available 05/25/2020 How Many Years Have You Smoked Tobacco? 0 [id number] Information not available 05/25/2020 Sex: Female Functional Status Question Answer Note LastModified by Organizat ion Details LastModified Time What is your level of alcohol consumption? Occasional [id number] Information not available 05/25/2020 Mental Status None recorded. Family History Relationship Description Onset Age of this Age Resolved Age Notes LastModified by Organization Details LastModified Time Sister Cardiac arrhythmia [email or web address] Not available 08/30 10:54:33 Sister Malignant neoplasm of colon [email or web address] Not available 2019 10:54:54 Unspecified Relation Malignant neoplasm of prostate [email or web address] Not available 09:56:55 Brother Malignant lymphoma [email or web address] Not available 09:56:55 Brother Diabetes mellitus with neurop athy [email or web address] Not available 08/21/2016 09:58:24 Notes:1 daughter healthy. no particular family history of breast cancer, gynecologic cancers, colonic neoplasia Medical History Condition Response Chronic Pain Y Gynecological HistoryNo gynecological history recorded. Obstetrics History GPAL:G 0 P 0 0 0 0 Past Encounters Encounter ID Performer Location Encounter Start Date Encounter Closed Date Diagnosis/Indication Diagnosis SNOMED-CT Code Diagnosis ICD10 Code Diagnosis IMO Codes Diagnosis Note [id number] ASUNCION DOMÍNGUEZ, FAWN [facility] [address] [place] [address] 04/06/2025 12:29:46 04/07/2025 09:03:06 Health Concerns Section Related Observation LastModified by Organization Detai ls LastModified Time None Recorded Concern Status LastModified by Organization Details LastModified Time None Recorded Payers Encounter Date Sequence Insurance Name Policy Number Policy Carver Covered Member ID Carver Member ID Guarantor Name 04/06/2025 1 MEDICARE A-[place]: [id number] Denisa Palacios [id number] Denisa Palacios 04/06/2025 [employer] (MOVED TO HOLD) Denisa Palacios [id number] Denisa Palacios OBGysandra Episode No OBEpisode recorded.
--- OUTSIDE RECORDS SUMMARY | 2025-06-29 01:06 | XMS_ITS | Data Portability ---
Author Organization [place] [employer] [facility], [facility] Address [address] [place] [address] Care Team Providers Care Copper Miner Name Role Phone LOPEZ MENDOZA Primary Care Provider Unavailabl e Assessment Encounter Date Assessment Date Assessment LastModified by Organization Details LastModified Time 06/22/2024 06/22/2024 Reason for Encounter Removeable Prosthesis Encounter Date: 10:45 AM - 06/22/2024 Treating Provider: Asuncion Mercado Problems Hyperlipidemia Chronic pain Migraine without aura Neuropathy [...] back, multiple back surgeries PREMED needed 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 Generalized occlusal wear on both maxillary and mandibular arches. Past hx of bruxism. Occlusal guard fabrication indicated. Risks: Pt. may not like feel of appliance intraorally. May wear through appliance faster than expected. May cause pt. to wake periodically throughout the night if not consistently worn. Benefits: Protection of dentition from forces of bruxism. May alleviate physiological signs of bruxism like headaches, migraines, muscle spasms, dentoalveolar pain. Alternative tx: Do nothing. Risks, benefits, and alternatives discussed with the patient. scanned impression of max and Cesar arch completed using RoboEd scanner Next Visit: Delivery of In-house and Lab occ. guard. Additional Comments: Explained and discussed conditions, findings, and plan of care. Treating Provider Asuncion Mercado I attest that the treatment rendered today was completed. , 12:00 PM. 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 Medical History Review: Inserted occlusal guard and adjusted as necessary with nose cone slow speed and burs and articulating paper. Delivery of occlusal guard w/storage case. Discussed proper usage & maintenance. Patient understood. Requested patient to bring appliance to all recall appointments for evaluation. Patient acknowledged. Patient dismissed in good order after all questions answered. Additional Comments: Explained and discussed conditions, findings, and plan of care. Follow-Up/Next Visit: Next appointment date is 11/03/2024 at 11:00 AM Treating Provider: Asuncion Mercado Hygienist: Marcela Dominguez Reason For Encounter: Recare Adult Treating Provider Asuncion Mercado I attest that the treatment rendered today was completed. , 11:05 AM. [email or web address] Not available 07/26/2024 15:50:47 12/13/2024 12/13/2024 Pt presented for a re care appointment. Chief Complaint: I am here for cleaning and I have very sensitive teeth. Medical History: Reviewed and updated medical history. No significant changes or concerns reported. Head & Neck Cancer Screening: Completed. No abnormal findings noted. Intraoral Examination: Soft Tissue: No lesions, ulcers, or abnormalities noted Gingival Status: Presence of generalized moderate to severe gingival inflammation. Periodontal Findings: Generalized mild to moderate supra and subgingival calculus detected. Caries Risk Assessment: High based on clinical findings and patient history. 4 BWX taken and interpreted today. Treatment Performed: Full-mouth ultrasonic scaling performed to remove supra- and subgingival deposits. Hand scaling performed in all necessary areas to ensure thorough debridement. Teeth polished with prophy paste to remove plaque and extrinsic stains. Flossed all interproximal contacts. Oral Hygiene Instructions: Reviewed and reinforced oral hygiene techniques: [place] 2x daily for at least 2 minutes using fluoride toothpaste. Floss daily or use interdental plastic tubing insulation supervisor as appropriate. Discussed the importance of routine dental visits and periodontal maintenance. Clinical Assessment and Recommendations: Noted generalized moderate to severe gingival inflammation. Calculus: Generalized mild to moderate supra and subgingival calculus. Plaque: moderate Stains: mild Decay: Absent Recommended Core buildup and Caputa: Irt #3, #4, #14, #15, #18, #19, #20 The patient reported that she has old restorations in her upper left teeth (points to Irt #14 and #15) which feel very jagged and rough. She also mentioned that floss tends to get stuck in that area, and on several occasions, small pieces of the gnosticist have broken off. Clinical and radiographic examination revealed that the upper left teeth and several others have large, aged amalgam restorations with evidence of microleakage and microfractures. It was explained to the patient that the best course of action would be to remove the old restorations, restore with a new gnosticist properly, and place crowns over it to prevent future microfractures. The patient expressed concern about long-term durability and stated that she would like to proceed with crowns to avoid potential breakage over time. She was informed that today s visit would include a cleaning, and appointments should be scheduled for the crown procedures. She was also advised that if, during the removal of old restorations, the cavities are found to be deep and close to the nerve, root canal treatment (RCT) may be required for those teeth. The patient understood and agreed to the proposed treatment plan. Patient Education: Explained findings and recommended treatment. Answered all patient questions to satisfaction. Patient Dismissal: Patient dismissed in good order after completion of treatment and education. No adverse events or complications during the appointment. 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[facility] Allergies Allergies reviewed by: Renee Byrd Allergies reviewed on: 12/13/2024 01:13 pm amitriptyline aspirin Cymbalta gabapentin Penicillins Topamax Medications Medications reviewed by: Renee Byrd Medications reviewed on: 12/13/2024 01:13 pm cyclobenzaprine 10 mg tablet cyclobenzaprine 10 mg tablet traZODone 50 mg tablet clindamycin HCL 150 mg capsule venlafaxine ER 150 mg capsule,extended release 24 [...] 2)-100 mg tablets in a dose pack Treatment Planned Procedures D2950 - Core buildup, including any pins when required Teeth: 3 4 14 15 18 19 20 D2740 - Caputa - porcelain/ceramic substrate Teeth: 3 4 14 15 18 19 20 Stages: One, One, One, One, One, One, One, Final, Final, Final, Final, Final, Final, Final Completed Procedures D0274 - Bitewings - four radiographic images D1320 - Tobacco counseling for the control and prevention of oral disease D0120 - Periodic oral evaluation - established patient D1330 - Oral hygiene instructions D4346 - Scaling in the presence of generalized moderate or severe gingival inflammation - full mouth, after oral evaluation Completed Procedures (cont.) Additional Comments: Explained and discussed conditions, findings, and plan of care. Follow-Up/Next Visit: Next appointment date is 05/12/2025 at 01:00 PM Treating Provider: Asuncion Mercado Reason For Encounter: Caputa and Bridge Treating Provider Renee Byrd DMD I attest that the treatment rendered today was completed. , 4:09 PM. 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 CA Addendum: , 8:50 AM I attest that the treatment rendered today was completed. , 2:22 PM. 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 Allergies amitriptyline aspirin Cymbalta gabapentin Penicillins Topamax Medications cyclobenzaprine 10 mg tablet cyclobenzaprine 10 mg [...] 2)-100 mg tablets in a dose pack Treatment Planned Procedures D5211 - Maxillary partial denture - resin base (including any conventional clasps, rests and teeth) Teeth: 10, 14 Stages: Final, Four, One, Three, Two D5650 - Add tooth to existing partial denture per tooth Teeth: 14 Stages: Final, One Completed Procedures D0171 - Re-evaluation - post-operative office visit Completed Procedures (cont.) the patient came today for extraction of tooth #14 but the patient has an appointment with oral surgeon next week for extraction and prefers to do the extraction with oral surgeon specially the tooth broke completely under the level of the gum the patient asked to explain the rest of the treatment plan we showed the patient x-rays and the teeth and explained the treatment plan Additional Comments: Explained and discussed conditions, findings, and plan of care. Treating Provider Asuncion Mercado Changed code from D0171 to D9110 due to treatment plan being signed and discussed in detail with the patient. CA Addendum: , 8:57 AM I attest that the treatment rendered today was completed. , 3:51 PM. [email or web address] Not available 05/15/2025 09:38:40 Plan of Treatment Reminders Order Date Submit [...] Recorded Time Compress ion injury of nerve [id number] Active neck Lopez Mendoza MD. [address] [place] [address], [phone], [facility] 6 11:34:31 Numbness [id number] Rain Mendoza MD. [address] [place] [address], [phone], [facility] 6 11:34:31 Migraine without aura [id number] Rain Mendoza MD. [address] [place] [address], [phone], [facility] 6 11:34:31 Myositis [id number] Rain Mendoza MD. [address] [place] [address], [address], [facility] 6 11:34:31 Atopic dermatit is [id number] Rain Mendoza MD. [address] [place] [address], [address] [place] [address], [facility] 6 11:34:31 Lumbosac ral radiculi tis [id number] Rain Mendoza MD. [address] [place] [address], [address] [place] [address], [facility] 6 11:34:31 Arthriti s [id number] Rain Mendoza MD. [address] [place] [address], [address] [place] [address], [facility] 6 11:34:31 Vertigo [id number] Rain Mendoza MD. [address] [place] [address], [address] [place] [address], [facility] 6 11:34:31 Epistaxi s Rain Mendoza MD. [address] [place] [address], [address] [place] [address], [facility] 6 11:34:31 Cervical radiculo meaghan [id number] Rain Mendoza MD. [address] [place] [address], [address] [place] [address], [facility] 6 11:34:31 Divertic ulitis of colon [id number] Rain Mendoza MD. [address] [place] [address], [address] [place] [address], [facility] 6 11:34:31 Fatigue [id number] Rain Mendoza MD. [address] [place] [address], [address] [place] [address], [facility] 6 11:34:31 Osteoart hritis 799058798 Active [facility] joint of thumb Lopez Mendoza MD. [address] [place] [address], [phone], [facility] 6 11:34:31 Dyspnea [id number] Rain Mendoza MD. [address] [place] [address], [phone], [facility] 6 11:34:31 Palpitat ions 45702072 Rain Mendoza MD. [address] [place] [address], [address], [facility] 6 20:06:12 Shoulder joint pain 788090409 Rain right shoulder Lopez Mendoza MD. [address] [place] [address], [address], [facility] 6 11:34:31 Muscle pain [id number] Rain Mendoza MD. [address] [place] [address], [address], [facility] 6 20:06:12 Hemorrho ids [id number] Rain Mendoza MD. [address] [place] [address], [address], [facility] [employer] [facility] 6 11:34:31 Exostosi s [id number] Rain Mendoza MD. [address] [place] [address], [address], [facility] 6 11:34:31 Pain in limb 31475152 Rain Mendoza MD. [address] [place] [address], [address], [facility] 6 11:34:31 Sj gren's syndrome [id number] Rain Mendoza MD. [address] [place] [address], [address], [facility] 6 11:34:31 Abnormal weight gain 699735385 Rain Mendoza MD. [address] [place] [address], [address], [facility] 6 11:34:31 Neck pain [id number] Rain Mendoza MD. [address] [place] [address], [address], [facility] 6 11:34:31 Cervico- occipita l neuralgi a 08880329 Active Lopez Mendoza MD. [address] [place] [address], [address], [facility] 6 11:34:31 Cubital tunnel syndrome Active right Lopez Mendoza MD. [address] [place] [address], [address], [facility] 6 11:34:31 Degenera tion of cervical interver tebral disc 06329141 Active Lopez Mendoza MD. [address] [place] [address], [address], [facility] 6 11:34:31 Cervical spondylo sis without myelopat hy 813253115 Active and without radiculop nerissay Lopez Mendoza MD. [address] [place] [address], [address], [facility] 6 11:34:31 Lumbar spondylo sis 281087519 Active Lopez Mendoza MD. [address] [place] [address], [address], [facility] 6 11:34:31 Backache 393528564 Active Lopez Mendoza MD. [address] [place] [address], [address], [facility] 6 11:34:31 Headache 77775950 Active Lopez Mendoza MD. [address] [place] [address], [address], [facility] 6 11:34:31 Neuropat hy 861750632 Rain Mendoza MD. [address] [place] [address], [address], [facility] 6 11:34:31 Knee pain Active Lopez Mendoza MD. [address] [place] [address], [address], [facility] 6 11:34:31 Upper chest pain 239001346 Active Lopez Mendoza MD. [address] [place] [address], [address], [facility] [employer] [facility] 6 20:06:12 Chest pain 77302268 Active Lopez Mendoza MD. [address] [place] [address], [address], [facility] [employer] [facility] 6 11:34:31 Esophagi tis 72597003 Active Lopez Mendoza MD. [address] [place] [address], [address], [facility] [employer] [facility] 6 11:34:31 Hyperlip idemia 70809345 Active Lopez Mendoza MD. [address] [place] [address], [address], [facility] [employer] 6 20:06:12 Chronic pain 52811710 Active 2017 Lopez Mendoza MD. 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 Procedures Surgical History Date Name Laterality Status Provider Name and Address Organization Details Recorded Time Appendectomy completed Lopze Mendoza MD. [address] [place] [address], [address], [facility] [employer] [facility] 04/15/2020 19:55:12 Section completed Lopez hendricks MD. [address] [place] [address], [address], [facility] [employer] [facility] 04/15/2020 19:55:29 Tubal Ligation completed Lopez lazar MD. [address] [place] [address], [address], [facility] [employer] [facility] 04/15/2020 19:55:54 Other completed ethan tsai [facility] [employer] [facility] 07/27/2015 15:20:37 Other completed ethan tsai [facility] 07/27/2015 15:21:26 Oral surgery completed ethan Morales [facility] 07/27/2015 15:21:51 Orthopedic Surgery completed ethan tsai [facility] 07/27/2015 15:22:33 Imaging Results None recorded. Procedure Notes None recorded. Medical Equipment None Reported. Allergies Allergen ID Allergen Name Allergen Category Reaction Reaction Severity Criticality Documentation Date Start Date Code Code System Note Provider Name and Address Organization Details Recorded Time 27199 amitripty line medicatio n Not available Not available Not available 07/16/2015 704 RxNorm artemio chandra [facility] 5 16:14:24 86639 aspirin medicatio n Not available Not available Not available 07/16/2015 1191 RxNorm artemio chandra [facility] 5 16:14:24 27890 Product containin g penicilli n (product) medicatio n rash Not available Not available 07/16/2015 69543 8001 SNOMED artemio chandra [facility] 5 16:14:24 56186 Topamax medicatio n Not available Not available Not available 07/16/2015 73242 3 RxNorm artemio chandra [facility] 5 16:14:24 18550 Cymbalta medicatio n diarrhea Not available Not available 02/06/2016 33990 4 RxNorm Mary Jo Clement-T edgar [facility] 6 11:11:01 85976 gabapenti n medicatio n Not available Not available Not available 02/06/2016 90673 RxNorm Mary Jo Clement-T edgar [facility] 6 11:11:10 Medications Name Sig Start Date [...] fluoromet holone 0.1 % eye drops,mary jo pension 02/17 completed Not Available Not Available Not [...] Available Not Available No t Available Acid Medical Billing Clerk (ranitidi ne) 150 mg tablet Take 1 [...] Social History Question Answer Notes LastModified by [employer] Details LastModified Time Tobacco Smoking Status Never Smoker Not Available [facility] 05/25/2020 03:13:19 Marital Status nona Wang on not available 08/23/2018 What Was The Date Of Your Most Recent Tobacco Screening? 10/12/2018 [id number] Information not available 05/25/2020 How Much Tobacco Do You Smoke? No [id number] Information not available 05/25/2020 How Many Years Have You Smoked Tobacco? 0 [id number] Information not available 05/25/2020 Sex: Female Functional Status Question Answer Note LastModified by [employer] Details LastModified Time What is your level of alcohol consumption? Occasional [id number] Information not available 05/25/2020 Mental Status None recorded. Family History Relationship Description Onset Age of this Age Resolved Age Notes LastModified by Organization Details LastModified Time Sister Cardiac arrhythmia [email or web address] Not available 08/30 10:54:33 Sister Malignant neoplasm of colon [email or web address] Not available 2019 10:54:54 Unspecified Relation Malignant neoplasm of prostate [email or web address] Not available 09:56:55 Brother Malignant lymphoma [email or web address] Not available 09:56:55 Brother Diabetes mellitus with neurop archie tellez Not available 08/21/2016 09:58:24 Notes:1 daughter healthy. no particular family history of breast cancer, gynecologic cancers, colonic neoplasia Medical History Condition Response Chronic Pain Y Gynecological HistoryNo gynecological history recorded. Obstetrics History GPAL:G 0 P 0 0 0 0 Past Encounters Encounter ID Performer Location Encounter Start Date Encounter Closed Date Diagnosis/Indication Diagnosis SNOMED-CT Code Diagnosis ICD10 Code Diagnosis IMO Codes Diagnosis Note [id number] Lopez Mendoza MD. [facility] [employer] [address] [place] [phone] 07/30/2015 09:57:03 07/30/2015 11:15:29 Knee pain 74882651 M25.562 no major findings on exam, orthopedic consultati on appropriat e Arthritis 2096741 M19.90 she needs to continue with rheumatolo gy. Has diagnosis of Sjogren's syndrome as well as osteoarthr itis Cervico-oc cipital neuralgia 30814130 M54.81 somewhat improved following procedure. Fatigue 86062988 R53.83 chronic fatigue probably associated with widespread musculoske letal symptoms and possibly also associated with medication Lumbar spondylosis 22136 0009 M47.896 chronic pain unchanged Sj gren's syndrome 98698818 M35.00 no major symptoms associated and uses artificial tears Vertigo 139039694 R42 improved. Use meclizine when necessary Migraine without aura 56 932463 G43.009 no significan t change in frequency or characteri stics of headache. May actually be somewhat less. [id number] Lopez Mendoza MD. [facility] [employer] [address] [place] [phone] 09/28/2015 09:45:41 09/28/2015 10:49:03 Upper chest pain 312477438 R07.9 Symptoms certainly seem to be noncardiac . Symptoms are most likely chest wall in origin, rule out pulmonary emboli. This needs prompt evaluation today. Palpitations 50521126 R0 0.2 No major feeling of arrhythmia today [id number] Lopez Mendoza MD. [facility] [employer] [address] [place] [phone] 02/06/2016 11:03:35 02/06/2016 11:49:10 Muscle pain 98402130 M79.1 No particular change in his chronic problem. Lyrica has been somewhat helpful but she reports that has adverse effects if the dose is increased Hyperlipidemia 58569632 E78.5 Lipids are up some. Elevated lipids but no known vascular disease. Upper chest pain 6855625 08 R07.9 Symptoms certainly seem to be noncardiac . GI consultaat ion is scheduled Palpitations 17109449 R0 0.2 No major feeling of arrhythmia today [id number] Lopez Mendoza MD. [facility] [employer] [address] [place] [address] CANDICE BUCKLEY [phone] 08/21/2016 09:11:44 08/21/2016 10:28:06 Adult health examination 327421483 Z00.00 Gen. condition stable including chronic problems. No ear pathology apparent. Suspect pain in the right ear area and the right posterior neck are both neurologic . Cautiously remain active Call back if symptoms change or worsen, or if additional problems develop. LDL is acceptable . Try to improve diet to lower triglyceri florentino Lumbar spondylosis 32767 0009 M47.896 Chronic pain unchanged; Continue with neurology Esophagitis 98256410 K20 .9 No major or worsening symptoms. Continue omeprazole Cervical s pondylosis without myelopathy 122284265 M47.812 Continue with neurology Myositis 88195808 M60.9 Continue with rheumatolo gy [id number] Lopez Mendoza MD. [facility] [employer] [address] [place] [address] [place] [address] 12/26/2016 13:56:17 12/26/2016 14:36:59 Rectal hemorrhage 09624259 K62.5 No major bleeding and has already had GI evaluation Multiple bruising 445994 006 T14.8 Doubt significan t blood or coagulatio n disorder Consider hematology consultati on Esophagitis 32085902 K20 .9 No major or worsening symptoms. Continue omeprazole [id number] Lopez Mendoza MD. [facility] [employer] [facility] [place] [address] 02/20/2017 10:57:49 02/20/2017 11:42:23 Constipation 38543816 K59.00 Continue with Gastroente rology Adult heal th examination 515410146 Z00.00 Gen. condition stable including chronic problems. . She should cautiously remain active Continue efforts for weight reduction Call back if symptoms change or worsen, or if additional problems develop. LDL is acceptable . Try to improve diet to lower triglyceri florentino Lumbar spondylosis 70942 0009 M47.896 Chronic pain unchanged; Continue with neurology Esophagitis 16401512 K20 .9 No major or worsening symptoms. Continue omeprazole Cervical s pondylosis without myelopathy 045465942 M47.812 Continue with neurology Myositis 81051680 M60.9 Continue with rheumatolo gy [id number] Lopez Mendoza MD. [facility] [employer] [address] [place] [address] 08/20/2017 11:05:07 08/20/2017 12:12:29 Constipation 28836362 K59.00 Continue with Gastroente rology Should have high fiber diet and plenty of liquids Adult heal th examination 697953699 Z00.00 Gen. condition stable including chronic problems. . She should cautiously remain active Continue efforts for weight reduction Call back if symptoms change or worsen, or if additional problems develop. LDL is acceptable . Try to improve diet to lower triglyceri florentino No cognitive problem. Formal testing not needed. No particular problem with anxiety. Not depressed. Continue healthy lifestyle and close followup here and with other providers. Her healthcare proxy is her sister Masha Hinkle Lumbar spondylosis 97683 0009 M47.896 Chronic pain unchanged; Continue with neurology Esophagitis 76739131 K20 .9 No major or worsening symptoms. Continue omeprazole Cervical s pondylosis without myelopathy 784726382 M47.812 Continue with neurology Myositis 29821239 M60.9 Continue with rheumatolo gy Atopic dermatitis 950513 01 L20.9 Occasional ly needs treatment [id number] Lopez Mendoza MD. [facility] [employer] [address] [place] [address] [place] [address] 09/21/2017 11:53:51 09/21/2017 13:18:47 Asthmatic bronchitis 242649699 J45.909 Symptoms consistent with respirator y tract infection with bronchospa sm Respirator y illness may be due to bacterial, viral or atypical infection. May use Tylenol and cough syrup. Call back if symptoms change or worsen, or if additional problems develop. [id number] Lopez Mendoza MD. [facility] [place] [employer] [address] [place] [address] [place] [address] 02/17/2018 11:19:31 02/17/2018 11:57:34 Adult health examination 410746764 Z00.00 Gen. condition stable including chronic problems. . She should cautiously remain active Continue efforts for weight reduction Continue healthy lifestyle and close followup here and with other providers. Her healthcare proxy is her sister Masha Hinkle Constipation 07263462 K5 9.00 Continue with Gastroente rology Should have high fiber diet and plenty of liquids Lumbar spondylosis 85156 0009 M47.896 Chronic pain unchanged; Continue with neurology Esophagitis 17786458 K20 .9 No major or worsening symptoms. Continue omeprazole Cervical s pondylosis without myelopathy 488614958 M47.812 Continue with neurology Myositis 96537159 M60.9 Continue with rheumatolo gy Atopic dermatitis 178410 01 L20.9 Occasional ly needs treatment Chronic pain 33579032 G8 9.29 [id number] Lopez Mendoza MD. [facility] [place] [employer] [address] [place] [address] 08/19/2018 11:01:10 08/19/2018 12:01:46 Adult health examination 826522455 Z00.00 Gen. condition stable including chronic problems. . She should cautiously remain active Needs to increase efforts for weight reduction Continue healthy lifestyle and close followup here and with other providers. No cognitive problem. Formal testing not needed. No particular problem with anxiety. Not depressed. Patient needs to make known to proxy expectatio ns, goals, and values regarding the end of life. Her healthcare proxy is her sister Masha Hinkle. Reviewed schedule of health screening tests and follow-up due in the next few years. Constipation 70086488 K5 9.00 Continue with Gastroente rology Should have high fiber diet and plenty of liquids Lumbar spondylosis 93288 0009 M47.896 Chronic pain unchanged; Continue with neurology Esophagitis 47758797 K20 .9 No major or worsening symptoms. Continue omeprazole Cervical s pondylosis without myelopathy 780537703 M47.812 Continue with neurology. Continue with physiatry and pain clinic Myositis 06442592 M60.9 Continue with rheumatolo gy Atopic dermatitis 831197 01 L20.9 Occasional ly needs treatment Chronic pain 83073567 G8 9.29 [id number] Zain Cohen MD. [facility] [place] [employer] [address] [place] [address] 09/20/2018 10:35:21 09/20/2018 11:29:00 Acute sinusitis 76105039 J01.90 [id number] Zain Cohen MD. [facility] [employer] [address] [place] [address] CANDICE BUCKLEY [address] 10/12/2018 14:33:05 10/12/2018 15:01:16 Cough 20279428 R05 [id number] Lopez Mendoza MD. [facility] [employer] [address] [facility] [place] [address] 02/23/2019 10:32:58 02/23/2019 11:01:38 Adult health examination 571763774 Z00.00 General condition stable including chronic problems. . She should cautiously remain active Needs to increase efforts for weight reduction Continue healthy lifestyle and close followup here and with other providers. Reviewed schedule of health screening tests and follow-up due in the next few years. Esophagitis 08591696 K20 .9 No major or worsening symptoms. Continue omeprazole . Continue with GI. Neuropathy 186349565 G62 .9 Continue with neurology. Hyperlipidemia 54846528 E78.5 Elevated lipids but no known vascular disease. Follow appropriat e diet. Chronic pain 16733862 G8 9.29 Avoid opioid medication . Continue with pain clinic [id number] Lopez Mendoza MD. [facility] [employer] [address] [place] [address] [place] [address] 02/29/2020 13:11:42 02/29/2020 15:53:25 Adult health examination 420733387 Z00.00 General condition stable including chronic problems. . She should cautiously remain active Needs to increase efforts for weight reduction Continue healthy lifestyle and close followup here and with other providers. Reviewed schedule of health screening tests and follow-up due in the next few years. Atopic dermatitis 504067 01 L20.9 Occasional ly needs treatment Cervical s pondylosis without myelopathy 061294398 M47.812 Continue with neurology. Continue with physiatry and pain clinic Chronic pain 15578775 G8 9.29 Avoid opioid medication . Continue with pain clinic Esophagitis 39224104 K20 .9 No major or worsening symptoms. Continue omeprazole . Continue with GI. Hyperlipidemia 18536939 E78.5 Elevated lipids but no known vascular disease. Follow appropriat e diet. 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 [facility] [place] [employer] [address] [place] [address] CANDICE BUCKLEY [address] 04/13/2020 10:31:47 04/13/2020 14:56:44 Knee pain 04320166 M25.562 No contraindi cation or unusual risk for planned surgery. She should have routine preoperati ve tests. EKG shows no significan t abnormalit y Cervical radiculopathy 14901018 M54.12 Symptoms are not severe at this time. Esophagitis 26947287 K20 .9 No major or worsening symptoms. Continue omeprazole . Continue with GI. Osteoarthritis 875308638 M19.90 [id number] Lopez Mendoza MD. [facility] [place] [employer] [address] [facility] CAND[place] BUCK[place] [address] 09/03/2020 10:32:53 09/03/2020 15:35:00 Adult health examination 209992024 Z00.00 General condition stable including chronic problems. . She should cautiously remain active Needs to increase efforts for weight reduction Continue healthy lifestyle and close followup here and with other providers. Discussed appropriat e measures to reduce villarreal virus risk Atopic dermatitis 201600 01 L20.9 Occasional ly needs treatment Cervical s pondylosis without myelopathy 518310256 M47.812 Continue with neurology. Continue with physiatry and pain clinic Chronic pain 91455845 G8 9.29 Avoid opioid medication . Continue with pain clinic Esophagitis 64666083 K20 .90 No major symptoms currently Fatigue 30611702 R53.83 May be multifacto rial. Consider further evaluation Headache 77335066 R51.9 Continue current medication s and neurology [id number] Emeka Mtz DMD [address] [address] 06/02/2023 14:15:31 08/13/2023 04:01:10 [id number] Emeka Mtz DMD [address] [address] 06/29/2023 14:38:50 07/06/2023 09:06:18 [id number] JUAN FRANCISCO POLANCO DMD [address] [address] 08/19/2023 10:04:46 08/25/2023 10:22:27 [id number] Emeka Mtz, FAWN [address] [address] 10/28/2023 13:08:44 12/07/2023 16:03:17 [id number] ASUNCION MERCADO DMD [address] [address] 03/25/2024 09:27:40 03/29/2024 09:09:19 [id number] Emeka Mtz DMD [address] [address] 05/04/2024 10:57:23 05/30/2024 10:55:37 [id number] ASUNCION JESS, FAWN [facility] [address] [place] [address] 06/22/2024 10:45:18 09/01/2024 14:57:55 [id number] ASUNCION JESS FAWN [facility] [address] [place] [address] 07/26/2024 10:49:50 07/26/2024 15:50:52 [id number] Emeka Mtz DMD [address] [address] 09/01/2024 16:17:05 09/01/2024 21:25:04 [id number] RENEE BYRD, BDS [facility] [address] [place] [address] 12/13/2024 12:56:05 12/19/2024 08:25:17 [id number] ASUNCION JESS FAWN [facility] [address] [place] [address] 04/06/2025 12:29:46 04/07/2025 09:03:06 [id number] ASUNCION MERCADO, DMD [facility] [address] [place] [address] 05/12/2025 12:55:37 05/15/2025 09:38:45 Health Concerns Section Related Observation LastModified by Organization Detai ls LastModified Time None Recorded Concern Status LastModified by Organization Details LastModified Time None Recorded Advance Directives Directive None Recorded Payers Insurance Date Sequence Insurance Name Policy Number Policy Carver Covered Member ID Carver Member ID Guarantor Name 04/25/2024 SLIDING FEE SCHEDULE - DISCOUNT Denisa Palacios 05/11/2025 MEDICARE B-[place]: [facility] Denisa Palacios [id number] Denisa Palacios 06/02/2023 [employer] (MOVED TO HOLD) Denisa Palacios [id number] Denisa Palacios 05/11/2025 1 MEDICARE A-[place]: [facility] - FQ Denisa Palacios [id number] Denisa Palacios 12/12/2024 [facility] 21 Denisa Palacios [id number] Denisa Palacios 05/10/2025 2 MED[place]ID-[place]: [facility] Denisa Palacios [id number] Denisa Palacios 11/24/2020 3 MEDICARE A-[place]: [facility] - [facility] Denisa Palacios [id number] Denisa Palacios 02/28/2019 2 [place] [facility] Denisa Palacios [id number] Denisa Palacios OBGyn Episode No OBEpisode recorded.
--- OUTSIDE RECORDS SUMMARY | 2025-06-29 01:06 | XMS_ITS | Continuity of Care Document ---
Author Organization MD - [facility], [facility] Address [address] [place] [address] Care Team Providers Care Vigoureux Printer Name Role Phone LOPEZ MATHIS Primary Care Provider Unavailabl e Assessment Encounter Date Assessment Date Assessment LastModified by Organization Details LastModified Time 05/12/2025 05/12/2025 Reason for Encounter Extractions Encounter Date: 1:00 PM - 05/12/2025 Treating Provider: Asuncion Domínguez Problems Hyperlipidemia Chronic pain Migraine without aura [...] back, multiple back surgeries PREMED needed 03/25/24 [employer] [facility] [facility] Allergies amitriptyline aspirin Cymbalta gabapentin Penicillins [...] and plan of care. Treating Provider Asuncion Domínguez Changed code from D0171 to D9110 due [...] Recorded Time Compress ion injury of nerve 58654375 Active neck Lopez Mathis MD. [address] [place] [address], [place], [address], [facility] 6 11:34:31 Numbness 03515254 Rain Mathis MD. [address] [place] [address], [address], [facility] 6 11:34:31 Migraine without aura 30664540 Rain Mathis MD. [address] [place] [address], [address], [facility] 6 11:34:31 Myositis 68817536 Rain Mathis MD. [address] [place] [address], [address] [place] [address], [facility] 6 11:34:31 Atopic dermatit is 07661300 Rain Mathis MD. [address] [place] [address], [address] [place] [address], [facility] 6 11:34:31 Lumbosac ral radiculi tis 40043194 Rain Mathis MD. [address] [place] [address], [address] [place] [address], [facility] 6 11:34:31 Arthriti s [id number] Rain Mathis MD. [address] [place] [address], [address] [place] [address], [facility] 6 11:34:31 Vertigo [id number] Rain Mathis MD. [address] [place] [address], [address], [facility] 6 11:34:31 Epistaxi s Rain Mathis MD. [address] [place] [address], [address], [facility] 6 11:34:31 Cervical radiculo meaghan 12528403 Rain Mathis MD. [address] [place] [address], [address], [facility] 6 11:34:31 Divertic ulitis of colon 301237177 Rain Mathis MD. [address] [place] [address], [address], [facility] 6 11:34:31 Fatigue 16468798 Rain Mathis MD. [address] [place] [address], [address], [facility] 6 11:34:31 Osteoart hritis 851503974 Active [facility] joint of thumb Lopez Mathis MD. [address] [place] [address], [address], [facility] 6 11:34:31 Dyspnea 556233293 Rain Mathis MD. [address] [place] [address], [address], [facility] 6 11:34:31 Palpitat ions 39566429 Rain Mathis MD. [address] [place] [address], [address], [facility] 6 20:06:12 Shoulder joint pain 889792877 Active right shoulder Lopez Mathis MD. [address] [place] [address], [address], [facility] 6 11:34:31 Muscle pain 12901932 Rain Mathis MD. [address] [place] [address], [address], [facility] 6 20:06:12 Hemorrho ids 60536507 Rain Mathis MD. [address] [place] [address], [address], [facility] 6 11:34:31 Exostosi s 790038931 Rain Mathis MD. [address] [place] [address], [address], [facility] 6 11:34:31 Pain in limb 75532692 Rain Mathis MD. [address] [place] [address], [address], [facility] 6 11:34:31 Sj gren's syndrome 81680247 Rain Mathis MD. [address] [place] [address], [address], [facility] 6 11:34:31 Abnormal weight gain 037980411 Active Lopez Mathis MD. [address] [place] [address], [address], [facility] 6 11:34:31 Neck pain 89644833 Rain Mathis MD. [address] [place] [address], [address], [facility] 6 11:34:31 Cervico- occipita l neuralgi a 36814790 Rain Mathis MD. [address] [place] [address], [address], [facility] 6 11:34:31 Cubital tunnel syndrome Active right Lopez Mathis MD. [address] [place] [address], [address], [facility] 6 11:34:31 Degenera tion of cervical interver tebral disc 31479326 Rain Mathis MD. [address] [place] [address], [address], [facility] 6 11:34:31 Cervical spondylo sis without myelopat hy 563350266 Active and without radiculop athy Lopez Mathis MD. [address] [place] [address], [address], [facility] 6 11:34:31 Lumbar spondylo sis 352120324 Rain Mathis MD. [address] [place] [address], [address], [facility] 6 11:34:31 Backache 087878052 Rain Mathis MD. [address] [place] [address], [address], [facility] 6 11:34:31 Headache 27307677 Rain Mathis MD. [address] [place] [address], [address], [facility] 6 11:34:31 Neuropat hy 258200318 Active Lopez Mathis MD. [address] [place] [address], [address], [facility] 6 11:34:31 Knee pain Active Lopez Mathis MD. [address] [place] [address], [address], [facility] 6 11:34:31 Upper chest pain 950462107 Active Lopez Mathis MD. [address] [place] [address], [address], [facility] 6 20:06:12 Chest pain 31870954 Active Lopez Mathis MD. [address] [place] [address], [address], [facility] 6 11:34:31 Esophagi tis 58717631 Active Lopez Mathis MD. [address] [place] [address], [address], [facility] 6 11:34:31 Hyperlip idemia 73002085 Active Lopez Mathis MD. [address] [place] [address], [address], [facility] 6 20:06:12 Chronic pain 17592467 Active 2017 Lopez Mathis MD. [address] [place] [address], [address], [facility] 8 18:21:18 Notes:Dental - Reported Prob lems 2024-03-25 History of artificial joint (situation) Note: left knee total replacement - artificial joint, [employer]ane[employer] in back, multiple back surgeries PREMED needed 03/25/24 [employer] [facility] Problem Notes None recorded. Procedures Surgical History Date Name Laterality Status Provider Name and Address Organization Details Recorded Time Appendectomy completed Lopez Mathis MD. [address] [place] [address], [address], [facility] 04/15/2020 19:55:12 Section completed Lopez hendricks MD. [address] [place], [address], [facility] 04/15/2020 19:55:29 Tubal Ligation completed Lopez lazar MD. [address] [place], [address], [facility] 04/15/2020 19:55:54 Other completed ethan tsai [facility] 07/27/2015 15:20:37 Other completed ethan tsai [facility] 07/27/2015 15:21:26 Oral surgery completed ethan quin [facility] 07/27/2015 15:21:51 Orthopedic Surgery completed ethan quin [facility] 07/27/2015 15:22:33 Imaging Results None recorded. Procedure Notes None recorded. Medical Equipment None Reported. Allergies Allergen ID Allergen Name Allergen Category Reaction Reaction Severity Criticality Documentation Date Start Date Code Code System Note Provider Name and Address Organization Details Recorded Time 44027 amitripty line medicatio n Not available Not available Not available 07/16/2015 704 RxNorm artemio chandra [facility] 5 16:14:24 80026 aspirin medicatio n Not available Not available Not available 07/16/2015 1191 RxNorm artemio chandra [facility] 5 16:14:24 25211 Product containin g penicilli n (product) medicatio n rash Not available Not available 07/16/2015 52873 8001 SNOMED artemio chandra [facility] 5 16:14:24 01671 Topamax medicatio n Not available Not available Not available 07/16/2015 23668 3 RxNorm artemio chandra [facility] 5 16:14:24 83017 Cymbalta medicatio n diarrhea Not available Not available 02/06/2016 33847 4 RxNorm Mary Jo hernández CMA [facility] 6 11:11:01 23879 gabapenti n medicatio n Not available Not available Not available 02/06/2016 29942 RxNorm Mary Jorivera Sullivan-Vicki li [place] - [facility] 6 11:11:10 Medications Name Sig Start Date [...] Available Not Available No t Available Acid Chief Specialist Leed (ranitidi ne) 150 mg tablet Take 1 [...] Tobacco Smoking Status Never Smoker Not Available [facility] 05/25/2020 03:13:19 Marital Status nona Wang on not available 08/23/2018 What Was The Date Of Your Most Recent Tobacco Screening? 10/12/2018 [id number] Information not available 05/25/2020 How Much Tobacco Do You Smoke? No [id number] Information not available 05/25/2020 How Many Years Have You Smoked Tobacco? 0 [id number] Information not available 05/25/2020 Sex: Female Functional Status Question Answer Note LastModified by Organizat ion Details LastModified Time What is your level of alcohol consumption? Occasional [id number] Information not available 05/25/2020 Mental Status None recorded. Family History Relationship Description Onset Age of this Age Resolved Age Notes LastModified by Organization Details LastModified Time Sister Cardiac arrhythmia [email or web address] Not available 08/30 10:54:33 Sister Malignant neoplasm of colon [email or web address] Not available 2019 10:54:54 Unspecified Relation Malignant neoplasm of prostate [email or web address] Not available 09:56:55 Brother Malignant lymphoma [email or web address] Not available 09:56:55 Brother Diabetes mellitus with [...] ICD10 Code Diagnosis IMO Codes Diagnosis Note [id number] ASUNCION DOMÍNGUEZ, FAWN [facility] [address] [place] [address] 05/12/2025 12:55:37 05/15/2025 09:38:45 Health Concerns Section Related Observation LastModified by Organization Detai ls LastModified Time None Recorded Concern Status LastModified by Organization Details LastModified Time None Recorded Payers Encounter Date Sequence Insurance Name Policy Number Policy Carver Covered Member ID Carver Member ID Guarantor Name 05/12/2025 1 MEDICARE A-[place]: [facility] - [facility] Denisa Palacios [id number] Denisa Palacios 05/12/2025 [employer] (MOVED TO HOLD) Denisa Palacios [id number] Denisa Palacios OBGyn Episode No OBEpisode recorded.
== END 2025-06-28 13:53 | disposition home or self-care (01) ==
LOC: HO.HNS 13:13
PROVIDERS: Visit Provider Physician Assistant
DX: M54.16 Radiculopathy, lumbar region (principal)
CPT/HCPCS: 99024

== ENCOUNTER → 2025-06-28 13:12 | Outpatient (BNVA) | payer MEDICARE, MEDICAID, SELFPAY | PROVIDERS: Visit Provider Physician Assistant | DX: M54.16 Radiculopathy, lumbar region (principal); Z98.890 Other specified postprocedural states | CPT/HCPCS: 99212 ==

== ENCOUNTER 2025-07-20 09:14 | Outpatient (REF) | payer MEDICARE, MEDICAID, SELFPAY ==
--- NOTE | ~2025-07-20 | XR_ITS ---
EXAMINATION: XR LUMBOSACRAL SPINE CLINICAL INFORMATION: M54.16 - Radiculopathy, lumbar region COMPARISON: March 20, 2025 TECHNIQUE: Lateral views in neutral, flexion and extension position. AP view. FINDINGS: Persistent transpedicular screw to the right L5 vertebra. Removed transpedicular screw right L4 vertebra. No gross malalignment in neutral position nor flexion or extension position. Multilevel marginal osteophyte formation and endplate sclerosis and decreased intervertebral disc height throughout the axial skeleton. Old superior endplate compression deformities in the lower thoracic and upper lumbar spine. Status post laminectomy L4-5 L5-S1 levels. S-shaped curvature of the thoracolumbar spine. Abundant stool. XR/XR lumbar spine 4V min IMPRESSION: Multilevel thoracolumbar spondylosis and scoliosis without acute fracture or gross listhesis or instability. Electronically signed by: Tomasz Dela Cruz MD 07/20/2025 10:33 AM DANNY SAVAGE
== END 2025-07-20 09:15 | disposition home or self-care (01) ==
LOC: HO.HOSX 09:14
PROVIDERS: Visit Provider Physician Assistant
DX: M54.16 Radiculopathy, lumbar region (principal)
CPT/HCPCS: 72110

== ENCOUNTER → 2025-07-20 10:22 | Outpatient (BNV) | payer MEDICARE, MEDICAID, SELFPAY | PROVIDERS: Visit Provider Radiology Diagnostic Radiology | DX: M54.16 Radiculopathy, lumbar region (principal); M47.815 Spondylosis without myelopathy or radiculopathy, thoracolumbar region; M41.86 Other forms of scoliosis, lumbar region | CPT/HCPCS: 72110 ==

== ENCOUNTER 2025-08-09 10:13 | Outpatient (REF) | payer MEDICARE, MEDICAID, SELFPAY ==
--- OUTSIDE RECORDS SUMMARY | 2025-08-11 10:46 | XMS_ITS | Continuity of Care Document ---
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 [address] [place] [address], [place], [address], [facility] 6 11:34:31 Numbness [id number] Rain Mathis MD. [address] [place] [address], [address], [facility] 6 11:34:31 Migraine without aura [id number] Rain Mathis MD. [address] [place] [address], [address], [facility] 6 11:34:31 Myositis [id number] Rain Mathis MD. [address] [place] [address], [address] [place] [address], [facility] 6 11:34:31 Atopic dermatit is [id number] Rain Mathis MD. [address] [place] [address], [address] [place] [address], [facility] 6 11:34:31 Lumbosac ral radiculi tis [id number] Rain Mathis MD. [address] [place] [address], [address] [place] [address], [facility] 6 11:34:31 Arthriti s [id number] Rain Mathis MD. [address] [place] [address], [address] [place] [address], [facility] 6 11:34:31 Vertigo [id number] Rain Mathis MD. [address] [place] [address], [address], [facility] 6 11:34:31 Epistaxi s Rain Mathis MD. [address] [place] [address], [address], [facility] 6 11:34:31 Cervical radiculo meaghan [id number] Rain Mathis MD. [address] [place] [address], [address], [facility] 6 11:34:31 Divertic ulitis of colon [id number] Rain Mathis MD. [address] [place] [address], [address], [facility] 6 11:34:31 Fatigue [id number] Rain Mathis MD. [address] [place] [address], [address], [facility] 6 11:34:31 Osteoart hritis 058034656 Active [facility] joint of thumb Lopez Mathis MD. [address] [place] [address], [address], [facility] 6 11:34:31 Dyspnea [id number] Rain Mathis MD. [address] [place] [address], [address], [facility] 6 11:34:31 Palpitat ions [id number] Rain Mathis MD. [address] [place] [address], [address], [facility] 6 20:06:12 Shoulder joint pain 019748520 Active right shoulder Lopez Mathis MD. [address] [place] [address], [address], [facility] 6 11:34:31 Muscle pain [id number] Rain Mathis MD. [address] [place] [address], [address], [facility] 6 20:06:12 Hemorrho ids [id number] Rain Mathis MD. [address] [place] [address], [address], [facility] 6 11:34:31 Exostosi s [id number] Rain Mathis MD. [address] [place] [address], [address], [facility] 6 11:34:31 Pain in limb [id number] Rain Mathis MD. [address] [place] [address], [address], [facility] 6 11:34:31 Sj gren's syndrome [id number] Rain Mathis MD. [address] [place] [address], [address], [facility] 6 11:34:31 Abnormal weight gain 846817780 Active Lopez Mathis MD. [address] [place] [address], [address], [facility] 6 11:34:31 Neck pain [id number] Rain Mathis MD. [address] [place] [address], [address], [facility] 6 11:34:31 Cervico- occipita l neuralgi a [id number] Rain Mathis MD. [address] [place] [address], [address], [facility] 6 11:34:31 Cubital tunnel syndrome Active right Lopez Mathis MD. [address] [place] [address], [address], [facility] 6 11:34:31 Degenera tion of cervical interver tebral disc [id number] Rain Mathis MD. [address] [place] [address], [address], [facility] 6 11:34:31 Cervical spondylo sis without myelopat hy 660142451 Active and without radiculop athy Lopez Mathis MD. [address] [place] [address], [address], [facility] 6 11:34:31 Lumbar spondylo sis [id number] Rain Mathis MD. [address] [place] [address], [address], [facility] 6 11:34:31 Backache [id number] Rain Mathis MD. [address] [place] [address], [address], [facility] 6 11:34:31 Headache [id number] Rain Mathis MD. [address] [place] [address], [address], [facility] [employer] [facility] 6 11:34:31 Neuropat hy 702896021 Active Lopez Mathis MD. [address] [place] [address], [address], [facility] 6 11:34:31 Knee pain Active Lopez Mathis MD. [address] [place] [address], [address], [facility] [employer] 6 11:34:31 Upper chest pain 475098472 Active Lopez Mathis MD. [address] [place] [address], [address], [facility] 6 20:06:12 Chest pain 53601227 Active Lopez Mathis MD. [address] [place] [address], [address], [facility] [facility] 6 11:34:31 Esophagi tis 97717281 Active Lopez Mathis MD. [address] [place] [address], [address], [facility] 6 11:34:31 Hyperlip idemia 04279834 Active Lopez Mathis MD. [address] [place] [address], [address], [facility] [employer] [facility] 6 20:06:12 Chronic pain 22323237 Active 2017 Lopez Mathis MD. 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 Procedures Surgical History Date Name Laterality Status Provider Name and Address Organization Details Recorded Time Appendectomy completed Lopez Mathis MD. [address] [place] [address], [address], [place] [facility] 04/15/2020 19:55:12 Section completed Lopez hendricks MD. [address] [place], [address], [facility] 04/15/2020 19:55:29 Tubal Ligation completed Lopez lazar MD. [address] [place], [address], [facility] 04/15/2020 19:55:54 Other completed ethan tsai [facility] 07/27/2015 15:20:37 Other completed ethan tsai [facility] 07/27/2015 15:21:26 Oral surgery completed ethan quin [facility] 07/27/2015 15:21:51 Orthopedic Surgery completed ethan quin [facility] 07/27/2015 15:22:33 Imaging Results None recorded. Procedure Notes None recorded. Medical Equipment None Reported. Allergies Allergen ID Allergen Name Allergen Category Reaction Reaction Severity Criticality Documentation Date Start Date Code Code System Note Provider Name and Address Organization Details Recorded Time 85039 amitripty line medicatio n Not available Not available Not available 07/16/2015 704 RxNorm artemio chandra [facility] 5 16:14:24 39912 aspirin medicatio n Not available Not available Not available 07/16/2015 1191 RxNorm artemio chandra [facility] 5 16:14:24 77695 Product containin g penicilli n (product) medicatio n rash Not available Not available 07/16/2015 29277 8001 SNOMED artemio chandra [facility] 5 16:14:24 24737 Topamax medicatio n Not available Not available Not available 07/16/2015 56940 3 RxNorm artemio chandra [facility] 5 16:14:24 61532 Cymbalta medicatio n diarrhea Not available Not available 02/06/2016 34164 4 RxNorm Mary Jo hernández CMA [facility] 6 11:11:01 75944 gabapenti n medicatio n Not available Not available Not available 02/06/2016 32668 RxNorm Mary Jorivera Sullivan-Vicki li [place] - [facility] 6 11:11:10 Medications Name Sig Start [...] Available Not Available No t Available Acid Thrill Performer (ranitidi ne) 150 mg tablet Take 1 [...] Tobacco Smoking Status Never Smoker Not Available [facility] 05/25/2020 03:13:19 Marital Status nona Wang on not available 08/23/2018 What Was The Date Of Your Most Recent Tobacco Screening? 10/12/2018 [id number] Information not available 05/25/2020 How Much Tobacco Do You Smoke? No [id number] Information not available 05/25/2020 How Many Years Have You Smoked Tobacco? 0 [id number] Information not available 05/25/2020 Sex: Female Functional Status Question Answer Note LastModified by Organizat ion Details LastModified Time What is your level of alcohol consumption? Occasional [id number] Information not available 05/25/2020 Mental Status None recorded. Family History Relationship Description Onset Age of this Age Resolved Age Notes LastModified by Organization Details LastModified Time Sister Cardiac arrhythmia [email or web address] Not available 08/30 10:54:33 Sister Malignant neoplasm of colon ajoslin Not available 2019 10:54:54 Unspecified Relation Malignant neoplasm of prostate [id number] Not available 09:56:55 Brother Malignant lymphoma [email or web address] Not available 09:56:55 Brother Diabetes mellitus with [...] ICD10 Code Diagnosis IMO Codes Diagnosis Note [id number] ASUNCION DOMÍNGUEZ, FAWN [facility] [address] [place] [address] 05/12/2025 12:55:37 05/15/2025 09:38:45 Health Concerns Section Related Observation LastModified by Organization Detai ls LastModified Time None Recorded Concern Status LastModified by Organization Details LastModified Time None Recorded Payers Encounter Date Sequence Insurance Name Policy Number Policy Carver Covered Member ID Carver Member ID Guarantor Name 05/12/2025 1 MEDICARE A-[place]: [facility] - [facility] Denisa Palacios [id number] Denisa Palacios 05/12/2025 [employer] 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
--- OUTSIDE RECORDS SUMMARY | 2025-08-11 10:46 | XMS_ITS | Data Portability ---
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 Floss daily or use interdental court collections officer as appropriate. Discussed the importance of routine dental visits and periodontal maintenance. Clinical Assessment and Recommendations: Noted generalized moderate to severe gingival inflammation. Calculus: Generalized mild to moderate supra and subgingival calculus. Plaque: moderate Stains: mild Decay: Absent Recommended Core buildup and [place]: Irt #3, #4, #14, #15, #18, #19, #20 The patient reported that she has old restorations in her upper left teeth (points to Irt #14 and #15) which feel very jagged and rough. She also mentioned that floss tends to get stuck in that area, and on several occasions, small pieces of the bahai have broken off. Clinical and radiographic examination revealed that the upper left teeth and several others have large, aged amalgam restorations with evidence of microleakage and microfractures. It was explained to the patient that the best course of action would be to remove the old restorations, restore with a new bahai properly, and place crowns over it to [...] during the appointment. Next Visit: Scheduled for [place] buildup and [place] Dr Gonzalez Reason for Encounter Recare Adult [...] back, multiple back surgeries PREMED needed 03/25/[address] [facility] Allergies Allergies reviewed by: Renee Byrd Allergies [...] 14 15 18 19 20 [id number] - [place] - porcelain/ceramic substrate Teeth: 3 4 14 [...] Treating Provider: Asuncion Mercado Reason For Encounter: [place] and [place] Treating Provider Renee Byrd DMD [...] back, multiple back surgeries PREMED needed 03/25/[address] Allergies Allergies reviewed by: Cheyenne Keller [...] Treating Provider: Asuncion Mercado Reason For Encounter: [place] and [place] Treating Provider Asuncion Scruggs 1 [...] back, multiple back surgeries PREMED needed 03/25/24 SOAPING MACHINE BACK TENDER [facility] Allergies amitriptyline aspirin Cymbalta gabapentin Penicillins [...] Recorded Time Compress ion injury of nerve 52454543 Active neck Lopez Mendoza MD. [address] [place] [address], [address], [facility] 6 11:34:31 Numbness 56628342 Rain Mendoza MD. [address] [place] [address], [address], [facility] 6 11:34:31 Migraine without aura 81036258 Rain Mendoza MD. [address] [place] [address], [address], [facility] 6 11:34:31 Myositis 10697773 Rain Mendoza MD. [address] [place] [address], [address], [facility] 6 11:34:31 Atopic dermatit is 74896580 Rain Mendoza MD. [address] [place] [address], [address] [place] [address], [facility] 6 11:34:31 Lumbosac ral radiculi tis 09981535 Rain Mendoza MD. [address] [place] [address], [address] [place] [address], [facility] 6 11:34:31 Arthriti s [id number] Rain Mendoza MD. [address] [place] [address], [address] [place] [address], [facility] 6 11:34:31 Vertigo 669299565 Rain Mendoza MD. [address] [place] [address], [address] [place] [address], [facility] 6 11:34:31 Epistaxi s Rain Mendoza MD. [address] [place] [address], [address] [place] [address], [facility] 6 11:34:31 Cervical radiculo meaghan 45611368 Rain Mendoza MD. [address] [place] [address], [address] [place] [address], [facility] 6 11:34:31 Divertic ulitis of colon 159679078 Rain Mendoza MD. [address] [place] [address], [address] [place] [address], [facility] 6 11:34:31 Fatigue 49623922 Rain Mendoza MD. [address] [place] [address], [address] [place] [address], [facility] 6 11:34:31 Osteoart hritis 733026936 Active [facility] joint of thumb Lopez Mendoza MD. [address] [place] [address], [address], [facility] 6 11:34:31 Dyspnea 087130222 Rain Mendoza MD. [address] [place] [address], [address], [facility] 6 11:34:31 Palpitat ions 26138437 Rain Mendoza MD. [address] [place] [address], [address], [facility] 6 20:06:12 Shoulder joint pain 403341400 Rain right shoulder Lopez Mendoza MD. [address] [place] [address], [address], [facility] 6 11:34:31 Muscle pain 99111213 Rain Mendoza MD. [address] [place] [address], [address], [facility] 6 20:06:12 Hemorrho ids 23466189 Rain Mendoza MD. [address] [place] [address], [address], [facility] [employer] [facility] 6 11:34:31 Exostosi s 220837796 Rain Mendoza MD. [address] [place] [address], [address], [facility] 6 11:34:31 Pain in limb 61245565 Rain Mendoza MD. [address] [place] [address], [address], [facility] 6 11:34:31 Sj gren's syndrome 49117165 Rain Mendoza MD. [address] [place] [address], [address], [facility] 6 11:34:31 Abnormal weight gain 697778013 Rain Mendoza MD. [address] [place] [address], [address], [facility] 6 11:34:31 Neck pain 57228945 Rain Mendoza MD. [address] [place] [address], [address], [facility] 6 11:34:31 Cervico- occipita l neuralgi a 65632950 Active Lopez Mendoza MD. [address] [place] [address], [address], [facility] 6 11:34:31 Cubital tunnel syndrome Active right Lopez Mendoza MD. [address] [place] [address], [address], [facility] 6 11:34:31 Degenera tion of cervical interver tebral disc 54381346 Active Lopez Mendoza MD. [address] [place] [address], [address], [facility] 6 11:34:31 Cervical spondylo sis without myelopat hy 870458486 Active and without radiculop nerissay Lopez Mendoza MD. [address] [place] [address], [address], [facility] 6 11:34:31 Lumbar spondylo sis 293620393 Active Lopez Mendoza MD. [address] [place] [address], [address], [facility] 6 11:34:31 Backache 044055450 Active Lopez Mendoza MD. [address] [place] [address], [address], [facility] 6 11:34:31 Headache 93162475 Active Lopez Mendoza MD. [address] [place] [address], [address], [facility] 6 11:34:31 Neuropat hy 439325673 Rain Mendoza MD. [address] [place] [address], [address], [facility] 6 11:34:31 Knee pain Active Lopez Mendoza MD. [address] [place] [address], [address], [facility] 6 11:34:31 Upper chest pain 650279041 Active Lopez Mendoza MD. [address] [place] [address], [address], [facility] [employer] [facility] 6 20:06:12 Chest pain 22160753 Active Lopez Mendoza MD. [address] [place] [address], [address], [facility] [employer] 6 11:34:31 Esophagi tis 99088947 Active Lopez Mendoza MD. [address] [place] [address], [address], [facility] [employer] [facility] 6 11:34:31 Hyperlip idemia 87705923 Active Lopez Mendoza MD. [address] [place] [address], [address], [facility] [employer] 6 20:06:12 Chronic pain 24452816 Active 2017 Lopez Mendoza MD. [address] [place] [address], [address], [facility] [employer] [facility] 8 18:21:18 Notes:Dental - Reported Prob lems 2024-03-25 History of artificial joint (situation) Note: left knee total replacement - artificial joint, Manjeet in back, multiple back surgeries PREMED needed 03/25/24 SOAPING MACHINE BACK TENDER [facility] Problem Notes None recorded. Procedures Surgical History Date Name Laterality Status Provider Name and Address Organization Details Recorded Time Appendectomy completed Lopez Mendoza MD. [address] [place] [address], [address], [facility] [employer] [facility] 04/15/2020 19:55:12 Section completed Lopez hendricks MD. [address] [place] [address], [address], [facility] [employer] [facility] 04/15/2020 19:55:29 Tubal Ligation completed Lopez lazar MD. [address] [place] [address], [address], [facility] [employer] [facility] 04/15/2020 19:55:54 Other completed ethan stai [facility] [employer] [facility] 07/27/2015 15:20:37 Other completed ethan tsai [facility] 07/27/2015 15:21:26 Oral surgery completed ethan Morales [facility] 07/27/2015 15:21:51 Orthopedic Surgery completed ethan tsai [facility] 07/27/2015 15:22:33 Imaging Results None recorded. Procedure Notes None recorded. Medical Equipment None Reported. Allergies Allergen ID Allergen Name Allergen Category Reaction Reaction Severity Criticality Documentation Date Start Date Code Code System Note Provider Name and Address Organization Details Recorded Time 97873 amitripty line medicatio n Not available Not available Not available 07/16/2015 704 RxNorm artemio chandra [facility] 5 16:14:24 71928 aspirin medicatio n Not available Not available Not available 07/16/2015 1191 RxNorm artemio chandra [facility] 5 16:14:24 76724 Product containin g penicilli n (product) medicatio n rash Not available Not available 07/16/2015 43790 8001 SNOMED artemio chandra [facility] 5 16:14:24 24454 Topamax medicatio n Not available Not available Not available 07/16/2015 28020 3 RxNorm artemio chandra [facility] 5 16:14:24 75048 Cymbalta medicatio n diarrhea Not available Not available 02/06/2016 41064 4 RxNorm Mary Jo Clement-T edgar [facility] 6 11:11:01 88015 gabapenti n medicatio n Not available Not available Not available 02/06/2016 84203 RxNorm Mary Jo Clement-T edgar [facility] 6 11:11:10 Medications Name Sig Start Date [...] Available No t Available Acid Director Of Orthopedics (ranitidi ne) 150 mg tablet Take 1 [...] Social History Question Answer Notes LastModified by [employer] Details LastModified Time Tobacco Smoking Status Never Smoker Not Available [facility] 05/25/2020 03:13:19 Marital Status nona Wang on not available 08/23/2018 What Was The Date Of Your Most Recent Tobacco Screening? 10/12/2018 [id number] Information not available 05/25/2020 How Much Tobacco Do You Smoke? No [id number] Information not available 05/25/2020 How Many Years Have You Smoked Tobacco? 0 [id number] Information not available 05/25/2020 Sex: Female Functional Status Question Answer Note LastModified by [employer] Details LastModified Time What is your level of alcohol consumption? Occasional [id number] Information not available 05/25/2020 Mental Status None recorded. Family History Relationship Description Onset Age of this Age Resolved Age Notes LastModified by Organization Details LastModified Time Sister Cardiac arrhythmia [email or web address] Not available 08/30 10:54:33 Sister Malignant neoplasm of colon [email or web address] Not available 2019 10:54:54 Unspecified Relation Malignant neoplasm of prostate [email or web address] Not available 09:56:55 Brother Malignant lymphoma [email or web address] Not available 09:56:55 Brother Diabetes mellitus with [...] ICD10 Code Diagnosis IMO Codes Diagnosis Note [id number] Lopez Mendoza MD. [facility] [employer] [address] [place] [address] 07/30/2015 09:57:03 07/30/2015 11:15:29 Knee pain 30180613 M25.562 no major findings on exam, orthopedic consultati on appropriat e Arthritis 6642862 M19.90 she needs to continue with rheumatolo gy. Has diagnosis of Sjogren's syndrome as well as osteoarthr itis Cervico-oc cipital neuralgia 95018287 M54.81 somewhat improved following procedure. Fatigue 15735108 R53.83 chronic fatigue probably associated with widespread musculoske letal symptoms and possibly also associated with medication Lumbar spondylosis 76149 0009 M47.896 chronic pain unchanged Sj gren's syndrome 37279626 M35.00 no major symptoms associated and uses artificial tears Vertigo 411071558 R42 improved. Use meclizine when necessary Migraine without aura 56 510883 G43.009 no significan t change in frequency or characteri stics of headache. May actually be somewhat less. [id number] Lopez Mendoza MD. [facility] [employer] [address] [place] [address] 09/28/2015 09:45:41 09/28/2015 10:49:03 Upper chest pain 401785877 R07.9 Symptoms certainly seem to be noncardiac . Symptoms are most likely chest wall in origin, rule out pulmonary emboli. This needs prompt evaluation today. Palpitations 51849737 R0 0.2 No major feeling of arrhythmia today [id number] Lopez Mendoza MD. [facility] [employer] [address] [place] [address] 02/06/2016 11:03:35 02/06/2016 11:49:10 Muscle pain 18432989 M79.1 No particular change in his chronic problem. Lyrica has been somewhat helpful but she reports that has adverse effects if the dose is increased Hyperlipidemia 54195120 E78.5 Lipids are up some. Elevated lipids but no known vascular disease. Upper chest pain 0428873 08 R07.9 Symptoms certainly seem to be noncardiac . GI consultaat ion is scheduled Palpitations 53450691 R0 0.2 No major feeling of arrhythmia today [id number] Lopez Mendoza MD. [facility] [employer] [address] [place] [address] CANDICE BUCKLEY [address] 08/21/2016 09:11:44 08/21/2016 10:28:06 Adult health examination 144514962 Z00.00 Gen. condition stable including chronic problems. No ear pathology apparent. Suspect pain in the right ear area and the right posterior neck are both neurologic . Cautiously remain active Call back if symptoms change or worsen, or if additional problems develop. LDL is acceptable . Try to improve diet to lower triglyceri florentino Lumbar spondylosis 85883 0009 M47.896 Chronic pain unchanged; Continue with neurology Esophagitis 59071522 K20 .9 No major or worsening symptoms. Continue omeprazole Cervical s pondylosis without myelopathy 108572170 M47.812 Continue with neurology Myositis 59081799 M60.9 Continue with rheumatolo gy [id number] Lopez Mendoza MD. [facility] [employer] [address] [place] [address] [place] [address] 12/26/2016 13:56:17 12/26/2016 14:36:59 Rectal hemorrhage 95715366 K62.5 No major bleeding and has already had GI evaluation Multiple bruising 203898 006 T14.8 Doubt significan t blood or coagulatio n disorder Consider hematology consultati on Esophagitis 87809121 K20 .9 No major or worsening symptoms. Continue omeprazole [id number] Lopez Mendoza MD. [facility] [employer] [facility] [address] 02/20/2017 10:57:49 02/20/2017 11:42:23 Constipation 23084141 K59.00 Continue with Gastroente rology Adult heal th examination 310989506 Z00.00 Gen. condition stable including chronic problems. . She should cautiously remain active Continue efforts for weight reduction Call back if symptoms change or worsen, or if additional problems develop. LDL is acceptable . Try to improve diet to lower triglyceri florentino Lumbar spondylosis 55514 0009 M47.896 Chronic pain unchanged; Continue with neurology Esophagitis 43827936 K20 .9 No major or worsening symptoms. Continue omeprazole Cervical s pondylosis without myelopathy 177248396 M47.812 Continue with neurology Myositis 00260634 M60.9 Continue with rheumatolo gy [id number] Lopez Mendoza MD. [facility] [employer] [address] [place] [address] 08/20/2017 11:05:07 08/20/2017 12:12:29 Constipation 49079061 K59.00 Continue with Gastroente rology Should have high fiber diet and plenty of liquids Adult heal th examination 361654088 Z00.00 Gen. condition stable including chronic problems. [...] is her sister Masha Hinkle Lumbar spondylosis 96690 0009 M47.896 Chronic pain unchanged; Continue with neurology Esophagitis 82880540 K20 .9 No major or worsening symptoms. Continue omeprazole Cervical s pondylosis without myelopathy 907889481 M47.812 Continue with neurology Myositis 29551329 M60.9 Continue with rheumatolo gy Atopic dermatitis 223408 01 L20.9 Occasional ly needs treatment [id number] Lopez Mendoza MD. [facility] [employer] [address] [place] [address] [place] [address] 09/21/2017 11:53:51 09/21/2017 13:18:47 Asthmatic bronchitis 922391399 J45.909 Symptoms consistent with respirator y tract infection with bronchospa sm Respirator y illness may be due to bacterial, viral or atypical infection. May use Tylenol and cough syrup. Call back if symptoms change or worsen, or if additional problems develop. [id number] Lopez Mendoza MD. [facility] [employer] [address] [place] [address] [place] [address] 02/17/2018 11:19:31 02/17/2018 11:57:34 Adult health examination 969740108 Z00.00 Gen. condition stable including chronic problems. . She should cautiously remain active Continue efforts for weight reduction Continue healthy lifestyle and close followup here and with other providers. Her healthcare proxy is her sister Masha Hinkle Constipation 91920125 K5 9.00 Continue with Gastroente rology Should have high fiber diet and plenty of liquids Lumbar spondylosis 61891 0009 M47.896 Chronic pain unchanged; Continue with neurology Esophagitis 72418134 K20 .9 No major or worsening symptoms. Continue omeprazole Cervical s pondylosis without myelopathy 413735854 M47.812 Continue with neurology Myositis 98232247 M60.9 Continue with rheumatolo gy Atopic dermatitis 705655 01 L20.9 Occasional ly needs treatment Chronic pain 63097610 G8 9.29 [id number] Lopez Mendoza MD. [facility] [employer] [address] [place] [address] 08/19/2018 11:01:10 08/19/2018 12:01:46 Adult health examination 639145518 Z00.00 Gen. condition stable including chronic problems. [...] due in the next few years. Constipation 76337602 K5 9.00 Continue with Gastroente rology Should have high fiber diet and plenty of liquids Lumbar spondylosis 32854 0009 M47.896 Chronic pain unchanged; Continue with neurology Esophagitis 19389893 K20 .9 No major or worsening symptoms. Continue omeprazole Cervical s pondylosis without myelopathy 166809435 M47.812 Continue with neurology. Continue with physiatry and pain clinic Myositis 19937213 M60.9 Continue with rheumatolo gy Atopic dermatitis 676337 01 L20.9 Occasional ly needs treatment Chronic pain 53382426 G8 9.29 [id number] Zain Cohen MD. [facility] [employer] [address] [place] [address] 09/20/2018 10:35:21 09/20/2018 11:29:00 Acute sinusitis 03752513 J01.90 [id number] Zain Cohen MD. [facility] [employer] [address] [place] [address] CANDICE BUCKLEY [address] 10/12/2018 14:33:05 10/12/2018 15:01:16 Cough 61161636 R05 [id number] Lopez Mendoza MD. [facility] [employer] [address] [facility] [place] [address] 02/23/2019 10:32:58 02/23/2019 11:01:38 Adult health examination 118684199 Z00.00 General condition stable including chronic problems. . She should cautiously remain active Needs to increase efforts for weight reduction Continue healthy lifestyle and close followup here and with other providers. Reviewed schedule of health screening tests and follow-up due in the next few years. Esophagitis 10751614 K20 .9 No major or worsening symptoms. Continue omeprazole . Continue with GI. Neuropathy 423067991 G62 .9 Continue with neurology. Hyperlipidemia 23610232 E78.5 Elevated lipids but no known vascular disease. Follow appropriat e diet. Chronic pain 01639195 G8 9.29 Avoid opioid medication . Continue with pain clinic [id number] Lopez Mendoza MD. [facility] [employer] [address] [place] [address] [place] [address] 02/29/2020 13:11:42 02/29/2020 15:53:25 Adult health examination 800417345 Z00.00 General condition stable including chronic problems. . She should cautiously remain active Needs to increase efforts for weight reduction Continue healthy lifestyle and close followup here and with other providers. Reviewed schedule of health screening tests and follow-up due in the next few years. Atopic dermatitis 994806 01 L20.9 Occasional ly needs treatment Cervical s pondylosis without myelopathy 127383296 M47.812 Continue with neurology. Continue with physiatry and pain clinic Chronic pain 46257069 G8 9.29 Avoid opioid medication . Continue with pain clinic Esophagitis 44611637 K20 .9 No major or worsening symptoms. Continue omeprazole . Continue with GI. Hyperlipidemia 56274551 E78.5 Elevated lipids but no known vascular disease. Follow appropriat e diet. Sj gren's syndrome 56214933 M35.00 no major symptoms associated and uses artificial tears [id number] Lopez Mendoza MD. [facility] [employer] [address] [place] [address] CANDICE BUCKLEY [address] 04/13/2020 10:31:47 04/13/2020 14:56:44 Knee pain 25802850 M25.562 No contraindi cation or unusual risk for planned surgery. She should have routine preoperati ve tests. EKG shows no significan t abnormalit y Cervical radiculopathy 74603669 M54.12 Symptoms are not severe at this time. Esophagitis 84501642 K20 .9 No major or worsening symptoms. Continue omeprazole . Continue with GI. Osteoarthritis 221665527 M19.90 [id number] Lopez Mendoza MD. [facility] [employer] [address] [facility] CANDICE BUCKLEY [address] 09/03/2020 10:32:53 09/03/2020 15:35:00 Adult health examination 899444173 Z00.00 General condition stable including chronic problems. . She should cautiously remain active Needs to increase efforts for weight reduction Continue healthy lifestyle and close followup here and with other providers. Discussed appropriat e measures to reduce villarreal virus risk Atopic dermatitis 626136 01 L20.9 Occasional ly needs treatment Cervical s pondylosis without myelopathy 765022635 M47.812 Continue with neurology. Continue with physiatry and pain clinic Chronic pain 45794880 G8 9.29 Avoid opioid medication . Continue with pain clinic Esophagitis 63584724 K20 .90 No major symptoms currently Fatigue 54944190 R53.83 May be multifacto rial. Consider further evaluation Headache 40960500 R51.9 Continue current medication s and neurology [id number] Emeka Mtz DMD [address] [address] 06/02/2023 14:15:31 08/13/2023 04:01:10 [id number] Emeka Mtz DMD [address] [address] 06/29/2023 14:38:50 07/06/2023 09:06:18 [id number] JUAN FRANCISCO POLANCO DMD [address] [address] 08/19/2023 10:04:46 08/25/2023 10:22:27 [id number] Emeka Mtz, FAWN [address] [address] 10/28/2023 13:08:44 12/07/2023 16:03:17 [id number] ASUNCION MERCADO DMD [address] [address] 03/25/2024 09:27:40 03/29/2024 09:09:19 [id number] Emeka Mtz DMD [address] [address] 05/04/2024 10:57:23 05/30/2024 10:55:37 [id number] ASUNCION JESS, FAWN [facility] [address] [place] [address] 06/22/2024 10:45:18 09/01/2024 14:57:55 [id number] ASUNCION JESS FAWN [facility] [address] [place] [address] 07/26/2024 10:49:50 07/26/2024 15:50:52 [id number] Emeka Mtz DMD [address] [address] 09/01/2024 16:17:05 09/01/2024 21:25:04 [id number] RENEE BYRD, BDS [facility] [address] [place] [address] 12/13/2024 12:56:05 12/19/2024 08:25:17 [id number] ASUNCION JESS FAWN [facility] [address] [place] [address] 04/06/2025 12:29:46 04/07/2025 09:03:06 [id number] ASUNCION EMRCADO, DMD [facility] [address] [place] [address] 05/12/2025 12:55:37 05/15/2025 09:38:45 Health Concerns Section Related Observation LastModified by Organization Detai ls LastModified Time None Recorded Concern Status LastModified by Organization Details LastModified Time None Recorded Advance Directives Directive None Recorded Payers Insurance Date Sequence Insurance Name Policy Number Policy Carver Covered Member ID Carver Member ID Guarantor Name 04/25/2024 SLIDING FEE SCHEDULE - DISCOUNT Denisa Palacios 05/11/2025 MED[place]ARE [place]: [facility] Denisa Palacios [id number] Denisa Palacios 06/02/2023 [employer] (MOVED TO HOLD) Denisa Palacios [id number] Denisa Palacios 05/11/2025 1 [place] A[place] [facility] - FQ Denisa Palacios [id number] Denisa Palacios 12/[facility]20[facility] Denisa Palacios [id number] Denisa Palacios 05/10/2025 2 [place] [facility] Denisa Palacios [id number] Denisa Palacios 11/24/2020 3 [place] [facility] - FQHC Denisa Palacios [id number] Denisa Palacios 02/28/2019 2 [place] [facility] Denisa Palacios [id number] Denisa Palacios OBGyn Episode No OBEpisode recorded.
== END 2025-08-09 10:14 | disposition home or self-care (01) ==
LOC: HO.HOSX 10:13
PROVIDERS: Visit Provider Physician Assistant
DX: Z48.811 Encounter for surgical aftercare following surgery on the nervous system (principal); M48.061 Spinal stenosis, lumbar region without neurogenic claudication; Z98.890 Other specified postprocedural states
CPT/HCPCS: 99212

== ENCOUNTER 2025-08-09 13:09 | Outpatient (AMB) | payer MEDICARE, MEDICAID, SELFPAY ==
--- NOTE | 2025-08-09 13:28 | HO.SPINEOV ---
Intake Visit Reasons: 2nd post op with Xrays Intake Note: Ms. Palacios is here today for her 2nd post op with xrays. Molder Vacuum Required: No Allergies aspirin Allergy (Severe, Verified 08/09/25 13:29) Nausea Penicillins Allergy (Severe, Verified 08/09/25 13:29) Rash amitriptyline Allergy (Verified 08/09/25 13:29) Nausea duloxetine Allergy (Verified 08/09/25 13:29) Nausea gabapentin Allergy (Verified 08/09/25 13:29) Nausea topiramate Allergy (Verified 08/09/25 13:29) Nausea Assessment & Plan Assessment & Plan (1) Neural foraminal stenosis of lumbar spine: Code(s): M48.061 - Spinal stenosis, lumbar region without neurogenic claudication Category: Medical Plan Mrs Palacios is 2 months out from her right L5 foraminotomy. The original intention was to place 2 pedicle screws to facilitate keeping the foramen open, but the L5 screw remained in the pedicle and vertebral body secondary to a fracture of the titanium. Dr. Samuel was able to do a thorough foraminotomy, but unable to place the hardware. She is continuing to pierre with right leg pain. It has been a few months now but she finally feels like she is turning a corner. She did have some left leg pain for awhile but that is gone. Her x-rays did not show any evidence of overt instability. These were done just about a week or two ago. I encouraged her to continue to be active. We talked about the fact that since this is her 2nd back operation, she is not going to heal up quite as quickly as the 1st time. Also, she has a history of fibromyalgia and we know these patients take longer to recover and often times have more difficult issues with pain. From my standpoint shows no restrictions, but I told her just to be cautious with lifting and twisting for few more months. She can come back to see us down the road as needed. Rustam Samuel MD, PhD [facility] Orders: Orders XR lumbar spine 4V min Today M54.50 - Low back pain, unspecified Coding Level of Care Code Global (03532) Diagnoses Neural foraminal stenosis of lumbar spine M48.061
--- OUTSIDE RECORDS SUMMARY | 2025-08-09 14:41 | XMS_ITS | Continuity of Care Document ---
Author Organization [place] - [employer] [facility], [facility] Address [address] [place] [id number] Care Team Providers Care Actuarial Manager Name Role Phone LOPEZ MATHIS Primary Care [...] back, multiple back surgeries PREMED needed 03/25/24 JANITOR [employer]PER [facility] Allergies amitriptyline aspirin Cymbalta gabapentin Penicillins [...] Recorded Time Compress ion injury of nerve [id number] Active neck Lpoez Mathis MD. [address] [place] [address], [place], [address], [facility] - [employer] [facility] 6 11:34:31 Numbness [id number] Rain Mathis MD. [address] [place] [address], [address], [facility] 6 11:34:31 Migraine without aura [id number] Rain Mathis MD. [address] [place] [address], [address], [facility] 6 11:34:31 Myositis [id number] Rain Mathis MD. [address] [place] [address], [address] [place] [address], [facility] 6 11:34:31 Atopic dermatit is [id number] Rain Mathis MD. [address] [place] [address], [address] [place] [address], [facility] 6 11:34:31 Lumbosac ral radiculi tis [id number] Rain Mathis MD. [address] [place] [address], [address] [place] [address], [facility] 6 11:34:31 Arthriti s [id number] Rain Mathis MD. [address] [place] [address], [address] [place] [address], [facility] 6 11:34:31 Vertigo [id number] Rain Mathis MD. [address] [place] [address], [address], [facility] 6 11:34:31 Epistaxi s Rain Mathis MD. [address] [place] [address], [address], [facility] 6 11:34:31 Cervical radiculo meaghan [id number] Rain Mathis MD. [address] [place] [address], [address], [facility] 6 11:34:31 Divertic ulitis of colon [id number] Rain Mathis MD. [address] [place] [address], [address], [facility] 6 11:34:31 Fatigue [id number] Rain Mathis MD. [address] [place] [address], [address], [facility] 6 11:34:31 Osteoart hritis 299193649 Active [facility] joint of thumb Lopez Mathis MD. [address] [place] [address], [address], [facility] 6 11:34:31 Dyspnea [id number] Rain Mathis MD. [address] [place] [address], [address], [facility] 6 11:34:31 Palpitat ions [id number] Rain Mathis MD. [address] [place] [address], [address], [facility] 6 20:06:12 Shoulder joint pain 203583711 Active right shoulder Lopez Mathis MD. [address] [place] [address], [address], [facility] 6 11:34:31 Muscle pain [id number] Rain Mathis MD. [address] [place] [address], [address], [facility] 6 20:06:12 Hemorrho ids [id number] Rain Mathis MD. [address] [place] [address], [address], [facility] 6 11:34:31 Exostosi s [id number] Rain Mathis MD. [address] [place] [address], [address], [facility] 6 11:34:31 Pain in limb [id number] Rain Mathis MD. [address] [place] [address], [address], [facility] 6 11:34:31 Sj gren's syndrome [id number] Rain Mathis MD. [address] [place] [address], [address], [facility] 6 11:34:31 Abnormal weight gain 208950037 Active Lopez Mathis MD. [address] [place] [address], [address], [facility] 6 11:34:31 Neck pain [id number] Rain Mathis MD. [address] [place] [address], [address], [facility] 6 11:34:31 Cervico- occipita l neuralgi a [id number] Rain Mathis MD. [address] [place] [address], [address], [facility] 6 11:34:31 Cubital tunnel syndrome Active right Lopez Mathis MD. [address] [place] [address], [address], [facility] 6 11:34:31 Degenera tion of cervical interver tebral disc [id number] Rain Mathis MD. [address] [place] [address], [address], [facility] 6 11:34:31 Cervical spondylo sis without myelopat hy 366002116 Active and without radiculop athy Lopez Mathis MD. [address] [place] [address], [address], [facility] 6 11:34:31 Lumbar spondylo sis [phone] Rain Mathis MD. [address] [place] [address], [address], [facility] 6 11:34:31 Backache [id number] Rain Mathis MD. [address] [place] [address], [address], [facility] 6 11:34:31 Headache [id number] Rain Mathis MD. [address] [place] [address], [address], [facility] 6 11:34:31 Neuropat hy 727259335 Active Lopez Mathis MD. [address] [place] [address], [address], [facility] 6 11:34:31 Knee pain Active Lopez Mathis MD. [address] [place] [address], [address], [facility] 6 11:34:31 Upper chest pain 563839233 Active Lopez Mathis MD. [address] [place] [address], [address], [facility] 6 20:06:12 Chest pain 60003606 Active Lopez Mathis MD. [address] [place] [address], [address], [facility] 6 11:34:31 Esophagi tis 60818242 Active Lopez Mathsi MD. [address] [place] [address], [address], [facility] 6 11:34:31 Hyperlip idemia 42904048 Active Lopez Mathis MD. [address] [place] [address], [address], [facility] 6 20:06:12 Chronic pain 42304468 Active 2017 Lopez Mathis MD. 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 Procedures Surgical History Date Name Laterality Status Provider Name and Address Organization Details Recorded Time Appendectomy completed Lopez Mathis MD. [address] [place] [address], [address], [place] [facility] 04/15/2020 19:55:12 Section completed Lopez hendricks MD. [address] [place], [address], [facility] 04/15/2020 19:55:29 Tubal Ligation completed Lopez lazar MD. [address] [place], [address], [facility] 04/15/2020 19:55:54 Other completed ethan tsai [facility] 07/27/2015 15:20:37 Other completed ethan tsai [facility] 07/27/2015 15:21:26 Oral surgery completed ethan quin [facility] 07/27/2015 15:21:51 Orthopedic Surgery completed ethan quin [facility] 07/27/2015 15:22:33 Imaging Results None recorded. Procedure Notes None recorded. Medical Equipment None Reported. Allergies Allergen ID Allergen Name Allergen Category Reaction Reaction Severity Criticality Documentation Date Start Date Code Code System Note Provider Name and Address Organization Details Recorded Time 17587 amitripty line medicatio n Not available Not available Not available 07/16/2015 704 RxNorm artemio chandra [facility] 5 16:14:24 16565 aspirin medicatio n Not available Not available Not available 07/16/2015 1191 RxNorm artemio chandra [facility] 5 16:14:24 11054 Product containin g penicilli n (product) medicatio n rash Not available Not available 07/16/2015 29424 8001 SNOMED artemio chandra [facility] 5 16:14:24 41909 Topamax medicatio n Not available Not available Not available 07/16/2015 60528 3 RxNorm artemio chandra [facility] 5 16:14:24 73683 Cymbalta medicatio n diarrhea Not available Not available 02/06/2016 84633 4 RxNorm Mary Jo hernández CMA [facility] 6 11:11:01 68608 gabapenti n medicatio n Not available Not available Not available 02/06/2016 02620 RxNorm Mary Jorivera Sullivan-Vicki li [place] - [facility] 6 11:11:10 Medications Name Sig Start Date [...] Available Not Available No t Available Acid Fleet Assistant (ranitidi ne) 150 mg tablet Take 1 [...] Tobacco Smoking Status Never Smoker Not Available [facility] 05/25/2020 03:13:19 Marital Status nona Wang on not available 08/23/2018 What Was The Date Of Your Most Recent Tobacco Screening? 10/12/2018 [id number] Information not available 05/25/2020 How Much Tobacco Do You Smoke? No [id number] Information not available 05/25/2020 How Many Years Have You Smoked Tobacco? 0 [id number] Information not available 05/25/2020 Sex: Female Functional Status Question Answer Note LastModified by Organizat ion Details LastModified Time What is your level of alcohol consumption? Occasional [id number] Information not available 05/25/2020 Mental Status None recorded. Family History Relationship Description Onset Age of this Age Resolved Age Notes LastModified by Organization Details LastModified Time Sister Cardiac arrhythmia [email or web address] Not available 08/30 10:54:33 Sister Malignant neoplasm of colon [email or web address] Not available 2019 10:54:54 Unspecified Relation Malignant neoplasm of prostate [id number] Not available 09:56:55 Brother Malignant lymphoma [id number] Not available 09:56:55 Brother Diabetes mellitus with [...] ICD10 Code Diagnosis IMO Codes Diagnosis Note [id number] ASUNCION DOMÍNGUEZ, FAWN [facility] [address] [place] [address] 05/12/2025 12:55:37 05/15/2025 09:38:45 Health Concerns Section Related Observation LastModified by Organization Detai ls LastModified Time None Recorded Concern Status LastModified by Organization Details LastModified Time None Recorded Payers Encounter Date Sequence Insurance Name Policy Number Policy Carver Covered Member ID Carver Member ID Guarantor Name 05/12/2025 1 MEDICARE A-[place]: NGS - [facility] Denisa Palacios [id number] Denisa Palacios 05/12/2025 [employer] (MOVED TO HOLD) Denisa Palacios [id number] Denisa Palacios OBGyn Episode No OBEpisode recorded.
--- OUTSIDE RECORDS SUMMARY | 2025-08-09 14:41 | XMS_ITS | Data Portability ---
Author Organization [place] - [facility], [facility] [address] Light Inspector Address [address] [place] [address] Care Team Providers Care Cracker Dough Mixer Name Role Phone LOPEZ MENDOZA Primary Care [...] back, multiple back surgeries PREMED needed 03/25/24 GRAPHIC ILLUSTRATOR RDH Allergies amitriptyline aspirin Cymbalta gabapentin Penicillins [...] of max and Cesar arch completed using Genapsys scanner Next Visit: Delivery of In-house and [...] back, multiple back surgeries PREMED needed 03/25/24 GRAPHIC ILLUSTRATOR RDH Allergies amitriptyline aspirin Cymbalta gabapentin Penicillins [...] Instructions: Reviewed and reinforced oral hygiene techniques: Marion 2x daily for at least 2 minutes using fluoride toothpaste. Floss daily or use interdental cook starch as appropriate. Discussed the importance of routine dental visits and periodontal maintenance. Clinical Assessment and Recommendations: Noted generalized moderate to severe gingival inflammation. Calculus: Generalized mild to moderate supra and subgingival calculus. Plaque: moderate Stains: mild Decay: Absent Recommended Core buildup and Jean [place]itte: Irt #3, #4, #14, #15, #18, #19, #20 The patient reported that she has old restorations in her upper left teeth (points to Irt #14 and #15) which feel very jagged and rough. She also mentioned that floss tends to get stuck in that area, and on several occasions, small pieces of the nondenominational have broken off. Clinical and radiographic examination revealed that the upper left teeth and several others have large, aged amalgam restorations with evidence of microleakage and microfractures. It was explained to the patient that the best course of action would be to remove the old restorations, restore with a new nondenominational properly, and place crowns over it to [...] during the appointment. Next Visit: Scheduled for Jean Lafitte buildup and Jean Lafitte Dr Gonzalez Reason for Encounter Recare Adult [...] back, multiple back surgeries PREMED needed 03/25/24 GRAPHIC ILLUSTRATOR [facility] Allergies Allergies reviewed by: Renee Byrd Allergies [...] 14 15 18 19 20 [id number] - Jean Lafitte - porcelain/ceramic substrate Teeth: 3 4 14 [...] Treating Provider: Asuncion Mercado Reason For Encounter: [place] and Bridge Treating Provider Renee Byrd DMD [...] back, multiple back surgeries PREMED needed 03/25/[address] Allergies Allergies reviewed by: Cheyenne Keller [...] Treating Provider: Asuncion Mercado Reason For Encounter: [place] and Bridge Treating Provider Asuncion Scruggs 1 [...] back, multiple back surgeries PREMED needed 03/25/24 GRAPHIC ILLUSTRATOR RDH Allergies amitriptyline aspirin Cymbalta gabapentin Penicillins [...] Recorded Time Compress ion injury of nerve 12406583 Active neck Lopez Mendoza MD. [address] [place] [address], [address], [facility] 6 11:34:31 Numbness [id number] Rain Mendoza MD. [address] [place] [address], [address], [facility] 6 11:34:31 Migraine without aura 97612228 Rain Mendoza MD. [address] [place] [address], [address], [facility] 6 11:34:31 Myositis 40439206 Rain Mendoza MD. [address] [place] [address], [address], [facility] 6 11:34:31 Atopic dermatit is 74422060 Rain Mendoza MD. [address] [place] [address], [address] [place] [address], [facility] 6 11:34:31 Lumbosac ral radiculi tis 02675749 Rain Mendoza MD. [address] [place] [address], [address] [place] [address], [facility] 6 11:34:31 Arthriti s [id number] Rain Mendoza MD. [address] [place] [address], [address] [place] [address], [facility] 6 11:34:31 Vertigo 400587169 Rain Mendoza MD. [address] [place] [address], [address] [place] [address], [facility] 6 11:34:31 Epistaxi s Rain Mendoza MD. [address] [place] [address], [address] [place] [address], [facility] 6 11:34:31 Cervical radiculo meaghan 04804406 Rain Mendoza MD. [address] [place] [address], [address] [place] [address], [facility] 6 11:34:31 Divertic ulitis of colon 699636679 Rain Mendoza MD. [address] [place] [address], [address] [place] [address], [facility] 6 11:34:31 Fatigue 51783041 Rain Mendoza MD. [address] [place] [address], [address] [place] [address], [facility] 6 11:34:31 Osteoart hritis 458554759 Active [facility] joint of thumb Lopez Mendoza MD. [address] [place] [address], [address], [facility] 6 11:34:31 Dyspnea 722181539 Rain Mendoza MD. [address] [place] [address], [address], [facility] 6 11:34:31 Palpitat ions 88853232 Rain Mendoza MD. [address] [place] [address], [address], [facility] 6 20:06:12 Shoulder joint pain 612698411 Rain right shoulder Lopez Mendoza MD. [address] [place] [address], [address], [facility] 6 11:34:31 Muscle pain 87734711 Rain Mendoza MD. [address] [place] [address], [address], [facility] 6 20:06:12 Hemorrho ids 55171987 Rain Mendoza MD. [address] [place] [address], [address], [facility] [employer] [facility] 6 11:34:31 Exostosi s 448978784 Rain Mendoza MD. [address] [place] [address], [address], [facility] 6 11:34:31 Pain in limb 64176730 Rain Mendoza MD. [address] [place] [address], [address], [facility] 6 11:34:31 Sj gren's syndrome 41080729 Rain Mendoza MD. [address] [place] [address], [address], [facility] 6 11:34:31 Abnormal weight gain 592329565 Rain Mendoza MD. [address] [place] [address], [address], [facility] 6 11:34:31 Neck pain 93164956 Rain Mendoza MD. [address] [place] [address], [address], [facility] 6 11:34:31 Cervico- occipita l neuralgi a 46760496 Active Lopez Mendoza MD. [address] [place] [address], [address], [facility] 6 11:34:31 Cubital tunnel syndrome Active right Lopez Mendoza MD. [address] [place] [address], [address], [facility] 6 11:34:31 Degenera tion of cervical interver tebral disc 86278684 Active Lopez Mendoza MD. [address] [place] [address], [address], [facility] 6 11:34:31 Cervical spondylo sis without myelopat hy 716309475 Active and without radiculop nerissay Lopez Mendoza MD. [address] [place] [address], [address], [facility] 6 11:34:31 Lumbar spondylo sis 440478742 Active Lopez Mendoza MD. [address] [place] [address], [address], [facility] 6 11:34:31 Backache 346519252 Active Lopez Mendoza MD. [address] [place] [address], [address], [facility] 6 11:34:31 Headache 72554252 Active Lopez Mendoza MD. [address] [place] [address], [address], [facility] 6 11:34:31 Neuropat hy 900777245 Rain Mendoza MD. [address] [place] [address], [address], [facility] 6 11:34:31 Knee pain Active Lopez Mendoza MD. [address] [place] [address], [address], [facility] 6 11:34:31 Upper chest pain 384949915 Active Lopez Mendoza MD. [address] [place] [address], [address], [facility] 6 20:06:12 Chest pain 43985510 Active Lopez Mendoza MD. [address] [place] [address], [address], [facility] 6 11:34:31 Esophagi tis 19535001 Active Lopez Mendoza MD. [address] [place] [address], [address], [facility] 6 11:34:31 Hyperlip idemia 89018258 Active Lopez Mendoza MD. [address] [place] [address], [address], [facility] 6 20:06:12 Chronic pain 83095362 Active 2017 Lopez Mendoza MD. [address] [place] [address], [address], [facility] 8 18:21:18 Notes:Dental - Reported Prob lems 2024-03-25 History of artificial joint (situation) Note: left knee total replacement - artificial joint, Manjeet in back, multiple back surgeries PREMED needed 03/25/24 GRAPHIC ILLUSTRATOR RDH Problem Notes None recorded. Procedures Surgical History Date Name Laterality Status Provider Name and Address Organization Details Recorded Time Appendectomy completed Lopez Mendoza MD. [address] [place] [address], [address], [facility] 04/15/2020 19:55:12 Section completed Lopez hendricks MD. [address] [place] [address], [address], [facility] 04/15/2020 19:55:29 Tubal Ligation completed Lopez lazar MD. [address] [place] [address], [address], [facility] 04/15/2020 19:55:54 Other completed ethan tsai [facility] 07/27/2015 15:20:37 Other completed ethan tsai [facility] 07/27/2015 15:21:26 Oral surgery completed ethan Morales [facility] 07/27/2015 15:21:51 Orthopedic Surgery completed ethan tsai [facility] 07/27/2015 15:22:33 Imaging Results None recorded. Procedure Notes None recorded. Medical Equipment None Reported. Allergies Allergen ID Allergen Name Allergen Category Reaction Reaction Severity Criticality Documentation Date Start Date Code Code System Note Provider Name and Address Organization Details Recorded Time 85100 amitripty line medicatio n Not available Not available Not available 07/16/2015 704 RxNorm artemio chandra [facility] 5 16:14:24 49440 aspirin medicatio n Not available Not available Not available 07/16/2015 1191 RxNorm artemio chandra [facility] 5 16:14:24 02719 Product containin g penicilli n (product) medicatio n rash Not available Not available 07/16/2015 23216 8001 SNOMED artemio chandra [facility] 5 16:14:24 71587 Topamax medicatio n Not available Not available Not available 07/16/2015 31807 3 RxNorm artemio chandra [facility] 5 16:14:24 34120 Cymbalta medicatio n diarrhea Not available Not available 02/06/2016 85375 4 RxNorm Mary Jo Clement-T edgar [facility] 6 11:11:01 12469 gabapenti n medicatio n Not available Not available Not available 02/06/2016 84767 RxNorm Mary Jo Clement-T edgar [facility] 6 11:11:10 Medications Name Sig Start Date [...] Available Not Available No t Available Acid Director Of Hospitality (ranitidi ne) 150 mg tablet Take 1 [...] Social History Question Answer Notes LastModified by Qlika Details LastModified Time Tobacco Smoking Status Never Smoker Not Available [facility] 05/25/2020 03:13:19 Marital Status nona Wang on not available 08/23/2018 What Was The Date Of Your Most Recent Tobacco Screening? 10/12/2018 [id number] Information not available 05/25/2020 How Much Tobacco Do You Smoke? No [id number] Information not available 05/25/2020 How Many Years Have You Smoked Tobacco? 0 [id number] Information not available 05/25/2020 Sex: Female Functional Status Question Answer Note LastModified by [employer] Details LastModified Time What is your level of alcohol consumption? Occasional [id number] Information not available 05/25/2020 Mental Status None recorded. Family History Relationship Description Onset Age of this Age Resolved Age Notes LastModified by Organization Details LastModified Time Sister Cardiac arrhythmia [email or web address] Not available 08/30 10:54:33 Sister Malignant neoplasm of colon [email or web address] Not available 2019 10:54:54 Unspecified Relation Malignant neoplasm of prostate [id number] Not available 09:56:55 Brother Malignant lymphoma [email or web address] Not available 09:56:55 Brother Diabetes mellitus with [...] ICD10 Code Diagnosis IMO Codes Diagnosis Note [id number] Lopez Mendoza MD. [facility] [employer] [address] [place] [address] 07/30/2015 09:57:03 07/30/2015 11:15:29 Knee pain 48895077 M25.562 no major findings on exam, orthopedic consultati on appropriat e Arthritis 5610200 M19.90 she needs to continue with rheumatolo gy. Has diagnosis of Sjogren's syndrome as well as osteoarthr itis Cervico-oc cipital neuralgia 26868780 M54.81 somewhat improved following procedure. Fatigue 82644369 R53.83 chronic fatigue probably associated with widespread musculoske letal symptoms and possibly also associated with medication Lumbar spondylosis 27790 0009 M47.896 chronic pain unchanged Sj gren's syndrome 23039575 M35.00 no major symptoms associated and uses artificial tears Vertigo 091569608 R42 improved. Use meclizine when necessary Migraine without aura 56 044531 G43.009 no significan t change in frequency or characteri stics of headache. May actually be somewhat less. [id number] Lopez Mendoza MD. [facility] [employer] [address] [place] [address] 09/28/2015 09:45:41 09/28/2015 10:49:03 Upper chest pain 006845576 R07.9 Symptoms certainly seem to be noncardiac . Symptoms are most likely chest wall in origin, rule out pulmonary emboli. This needs prompt evaluation today. Palpitations 64993034 R0 0.2 No major feeling of arrhythmia today [id number] Lopez Mendoza MD. [facility] [employer] [address] [place] [address] 02/06/2016 11:03:35 02/06/2016 11:49:10 Muscle pain 97059702 M79.1 No particular change in his chronic problem. Lyrica has been somewhat helpful but she reports that has adverse effects if the dose is increased Hyperlipidemia 58447463 E78.5 Lipids are up some. Elevated lipids but no known vascular disease. Upper chest pain 6412510 08 R07.9 Symptoms certainly seem to be noncardiac . GI consultaat ion is scheduled Palpitations 17827631 R0 0.2 No major feeling of arrhythmia today [id number] Lopez Mendoza MD. [facility] [employer] [address] [place] [address] CANDIEC BUCKLEY [address] 08/21/2016 09:11:44 08/21/2016 10:28:06 Adult health examination 318049938 Z00.00 Gen. condition stable including chronic problems. No ear pathology apparent. Suspect pain in the right ear area and the right posterior neck are both neurologic . Cautiously remain active Call back if symptoms change or worsen, or if additional problems develop. LDL is acceptable . Try to improve diet to lower triglyceri florentino Lumbar spondylosis 38155 0009 M47.896 Chronic pain unchanged; Continue with neurology Esophagitis 39689205 K20 .9 No major or worsening symptoms. Continue omeprazole Cervical s pondylosis without myelopathy 940886017 M47.812 Continue with neurology Myositis 84005021 M60.9 Continue with rheumatolo gy [id number] Lopez Mendoza MD. [facility] [employer] [address] [place] [address] [place] [address] 12/26/2016 13:56:17 12/26/2016 14:36:59 Rectal hemorrhage 70683681 K62.5 No major bleeding and has already had GI evaluation Multiple bruising 970516 006 T14.8 Doubt significan t blood or coagulatio n disorder Consider hematology consultati on Esophagitis 45463585 K20 .9 No major or worsening symptoms. Continue omeprazole [id number] Lopez Mendoza MD. [facility] [employer] [place] [address] 02/20/2017 10:57:49 02/20/2017 11:42:23 Constipation 00748323 K59.00 Continue with Gastroente rology Adult heal th examination 863706148 Z00.00 Gen. condition stable including chronic problems. . She should cautiously remain active Continue efforts for weight reduction Call back if symptoms change or worsen, or if additional problems develop. LDL is acceptable . Try to improve diet to lower triglyceri florentino Lumbar spondylosis 60382 0009 M47.896 Chronic pain unchanged; Continue with neurology Esophagitis 25791278 K20 .9 No major or worsening symptoms. Continue omeprazole Cervical s pondylosis without myelopathy 580719172 M47.812 Continue with neurology Myositis 77768414 M60.9 Continue with rheumatolo gy [id number] Lopez Mendoza MD. [facility] [employer] [address] [place] [address] 08/20/2017 11:05:07 08/20/2017 12:12:29 Constipation 26656020 K59.00 Continue with Gastroente rology Should have high fiber diet and plenty of liquids Adult heal th examination 677386182 Z00.00 Gen. condition stable including chronic problems. [...] is her sister Masha Hinkle Lumbar spondylosis 53218 0009 M47.896 Chronic pain unchanged; Continue with neurology Esophagitis 90516058 K20 .9 No major or worsening symptoms. Continue omeprazole Cervical s pondylosis without myelopathy 533098985 M47.812 Continue with neurology Myositis 33297510 M60.9 Continue with rheumatolo gy Atopic dermatitis 537684 01 L20.9 Occasional ly needs treatment [id number] Lopez Mendoza MD. [facility] [employer] [address] [place] [address] [place] [address] 09/21/2017 11:53:51 09/21/2017 13:18:47 Asthmatic bronchitis 648129754 J45.909 Symptoms consistent with respirator y tract infection with bronchospa sm Respirator y illness may be due to bacterial, viral or atypical infection. May use Tylenol and cough syrup. Call back if symptoms change or worsen, or if additional problems develop. [id number] Lopez Mendoza MD. [facility] [employer] [address] [place] [address] [place] [address] 02/17/2018 11:19:31 02/17/2018 11:57:34 Adult health examination 509084647 Z00.00 Gen. condition stable including chronic problems. . She should cautiously remain active Continue efforts for weight reduction Continue healthy lifestyle and close followup here and with other providers. Her healthcare proxy is her sister Masha Hinkle Constipation 65779886 K5 9.00 Continue with Gastroente rology Should have high fiber diet and plenty of liquids Lumbar spondylosis 96539 0009 M47.896 Chronic pain unchanged; Continue with neurology Esophagitis 86877849 K20 .9 No major or worsening symptoms. Continue omeprazole Cervical s pondylosis without myelopathy 806316516 M47.812 Continue with neurology Myositis 41576135 M60.9 Continue with rheumatolo gy Atopic dermatitis 788248 01 L20.9 Occasional ly needs treatment Chronic pain 96031591 G8 9.29 [id number] Lopez Mendoza MD. [facility] [employer] [address] [place] [address] 08/19/2018 11:01:10 08/19/2018 12:01:46 Adult health examination 949774881 Z00.00 Gen. condition stable including chronic problems. [...] due in the next few years. Constipation 07178278 K5 9.00 Continue with Gastroente rology Should have high fiber diet and plenty of liquids Lumbar spondylosis 37240 0009 M47.896 Chronic pain unchanged; Continue with neurology Esophagitis 81695699 K20 .9 No major or worsening symptoms. Continue omeprazole Cervical s pondylosis without myelopathy 742381620 M47.812 Continue with neurology. Continue with physiatry and pain clinic Myositis 25692379 M60.9 Continue with rheumatolo gy Atopic dermatitis 110979 01 L20.9 Occasional ly needs treatment Chronic pain 94052181 G8 9.29 [id number] Zain Cohen MD. [facility] [employer] [address] [place] [address] 09/20/2018 10:35:21 09/20/2018 11:29:00 Acute sinusitis 42333536 J01.90 [id number] Zain Cohen MD. [facility] [employer] [address] [place] [address] CANDICE BUCKLEY [address] 10/12/2018 14:33:05 10/12/2018 15:01:16 Cough 58607519 R05 [id number] Lopez Mendoza MD. [facility] [employer] [address] [place] [address] 02/23/2019 10:32:58 02/23/2019 11:01:38 Adult health examination 389123442 Z00.00 General condition stable including chronic problems. . She should cautiously remain active Needs to increase efforts for weight reduction Continue healthy lifestyle and close followup here and with other providers. Reviewed schedule of health screening tests and follow-up due in the next few years. Esophagitis 25655676 K20 .9 No major or worsening symptoms. Continue omeprazole . Continue with GI. Neuropathy 790056975 G62 .9 Continue with neurology. Hyperlipidemia 23971330 E78.5 Elevated lipids but no known vascular disease. Follow appropriat e diet. Chronic pain 90500444 G8 9.29 Avoid opioid medication . Continue with pain clinic [id number] Lopez Mendoza MD. [facility] [employer] [address] [place] [address] [place] [address] 02/29/2020 13:11:42 02/29/2020 15:53:25 Adult health examination 649261911 Z00.00 General condition stable including chronic problems. . She should cautiously remain active Needs to increase efforts for weight reduction Continue healthy lifestyle and close followup here and with other providers. Reviewed schedule of health screening tests and follow-up due in the next few years. Atopic dermatitis 034789 01 L20.9 Occasional ly needs treatment Cervical s pondylosis without myelopathy 458196683 M47.812 Continue with neurology. Continue with physiatry and pain clinic Chronic pain 05973928 G8 9.29 Avoid opioid medication . Continue with pain clinic Esophagitis 07029186 K20 .9 No major or worsening symptoms. Continue omeprazole . Continue with GI. Hyperlipidemia 84789004 E78.5 Elevated lipids but no known vascular disease. Follow appropriat e diet. Sj gren's syndrome 33852225 M35.00 no major symptoms associated and uses artificial tears [id number] Lopez Mendoza MD. [facility] [employer] [address] [place] [address] CANDICE BUCKLEY [address] 04/13/2020 10:31:47 04/13/2020 14:56:44 Knee pain 72512680 M25.562 No contraindi cation or unusual risk for planned surgery. She should have routine preoperati ve tests. EKG shows no significan t abnormalit y Cervical radiculopathy 83549075 M54.12 Symptoms are not severe at this time. Esophagitis 57895066 K20 .9 No major or worsening symptoms. Continue omeprazole . Continue with GI. Osteoarthritis 934470440 M19.90 [id number] Lopez Mendoza MD. [facility] [employer] [address] [facility] CANDICE BUCKLEY [address] 09/03/2020 10:32:53 09/03/2020 15:35:00 Adult health examination 596078702 Z00.00 General condition stable including chronic problems. . She should cautiously remain active Needs to increase efforts for weight reduction Continue healthy lifestyle and close followup here and with other providers. Discussed appropriat e measures to reduce villarreal virus risk Atopic dermatitis 412263 01 L20.9 Occasional ly needs treatment Cervical s pondylosis without myelopathy 161581669 M47.812 Continue with neurology. Continue with physiatry and pain clinic Chronic pain 86767037 G8 9.29 Avoid opioid medication . Continue with pain clinic Esophagitis 86389111 K20 .90 No major symptoms currently Fatigue 25166819 R53.83 May be multifacto rial. Consider further evaluation Headache 77910222 R51.9 Continue current medication s and neurology [id number] Emeka Mtz DMD [address] [address] 06/02/2023 14:15:31 08/13/2023 04:01:10 [id number] Emeka Mtz DMD [address] [address] 06/29/2023 14:38:50 07/06/2023 09:06:18 [id number] JUAN FRANCISCO POLANCO DMD [address] [address] 08/19/2023 10:04:46 08/25/2023 10:22:27 [id number] Emeka Mtz, FAWN [address] [address] 10/28/2023 13:08:44 12/07/2023 16:03:17 [id number] ASUNCION MERCADO DMD [address] [address] 4 03/25/2024 09:27:40 03/29/2024 09:09:19 [id number] Emeka Mtz DMD [address] [address] 05/04/2024 10:57:23 05/30/2024 10:55:37 [id number] ASUNCION JESS, FAWN [facility] [address] [place] [address] 06/22/2024 10:45:18 09/01/2024 14:57:55 [id number] ASUNCION JESS FAWN [facility] [address] [place] [address] 07/26/2024 10:49:50 07/26/2024 15:50:52 [id number] Emeka Mtz DMD [address] [address] 09/01/2024 16:17:05 09/01/2024 21:25:04 [id number] RENEE BYRD, BDS [facility] [address] [place] [address] 12/13/2024 12:56:05 12/19/2024 08:25:17 [id number] ASUNCION JESS FAWN [facility] [address] [place] [address] 04/06/2025 12:29:46 04/07/2025 09:03:06 [id number] ASUNCION MERCADO, DMD [facility] [address] [place] [address] 05/12/2025 12:55:37 05/15/2025 09:38:45 Health Concerns Section Related Observation LastModified by Organization Detai ls LastModified Time None Recorded Concern Status LastModified by Organization Details LastModified Time None Recorded Advance Directives Directive None Recorded Payers Insurance Date Sequence Insurance Name Policy Number Policy Carver Covered Member ID Carver Member ID Guarantor Name 04/25/2024 SLIDING FEE SCHEDULE - DISCOUNT Denisa Palacios 05/11/2025 MEDICARE B-[place]: [facility] Denisa Palacios [id number] Denisa Palacios 06/02/2023 [employer] (MOVED TO HOLD) Denisa Palacios [id number] Denisa Palacios 05/11/2025 1 MEDICARE A-[place]: [facility] - FQ Denisa Palacios [id number] Denisa Palacios 12/12/2024 [facility] OVER 21 Denisa Palacios [id number] Denisa Palacios 05/10/2025 2 MEDICAID-[place]: [facility] Denisa Palacios [id number] Denisa Palacios 11/24/2020 3 MEDICARE A-[place]: [facility] - FQHC Denisa Palacios [id number] Denisa Palacios 02/28/2019 2 [place] [facility] Denisa Palacios [id number] Denisa Palacios OBGyn Episode No OBEpisode recorded.
== END 2025-08-09 14:27 | disposition home or self-care (01) ==
LOC: HO.HNS 13:10
PROVIDERS: Visit Provider Physician Assistant
DX: M48.061 Spinal stenosis, lumbar region without neurogenic claudication (principal)
CPT/HCPCS: 99024